=== PATIENT | female | born 1965 | race Caucasian/White ===

== ENCOUNTER 2016-07-28 12:34 | Emergency (ER) | payer OTHER ==
[~2016-07-28] VITALS: Ht 170.2 cm; Wt 156.0 kg
[2016-07-28 12:45] VITALS: BP 134/84
--- NOTE | 2016-07-28 12:57 | ED UPPER/LOWER EXTREMITY COMPL ---
History of Present Illness General Chief Complaint: Lower Extremity Problems Stated Complaint: BLOOD CLOT IN LEFT LEG Source: patient, old records Exam Limitations: no limitations Vital Signs & Intake/Output Vital Signs & Intake/Output Vital Signs Date Time Temp Pulse Resp B/P Pulse O2 O2 Flow FiO2 Ox Delivery Rate 07/28 1245 97.8 67 20 134/84 97 Room Air Allergies Coded Allergies: NO KNOWN ALLERGIES (04/15/12) Triage Note: PT TO ED WITH BLOOD CLOT IN LEFT LEG. PT WAS DIANOSED WITH IT IN [place], SENT HOME WITH XARELTO. PT JUST ARRIVED BACK TO [place]. CAME TO ED. C/O SWELLING AND PAIN TO LLE. Triage Nurses Notes Reviewed? yes Onset: Abrupt Duration: day(s): (4), constant Timing: recent history Severity: moderate Severity Numbers: 5 Pain/Injury Location: Left: Leg. No Modifying Factors: none Associated Symptoms: swelling HPI: 50-year-old female with history of CVA, hypertension with recently diagnosed left lower extremity DVT 4 days ago while she was visiting her father down in [place]. The patient was started on Xarelto on July 25. She states since then she's had persistent aching pain and swelling to her left leg. She just flew back today and came straight to the hospital. The patient does have a history of an ivc filter secondary to blood clots several years ago. She denies any chest pain shortness of breath right leg pain or swelling fever chills. There are no modifying factors or associated symptoms otherwise. She's been able to ambulate without any difficulty. There's been no recent fall or trauma (GUERRERO RODRIGUEZ) Past History Travel History Traveled to [place] past 21 day No Medical History Any Pertinent Medical History? see below for history Neurological: CVA Cardiovascular: hypertension Cancer(s): cervical cancer Surgical History Surgical History: non-contributory Psychosocial History Who do you live with Patient/Self What is your primary language Finnish Tobacco Use: Quit >30 days ago ETOH Use: denies use Illicit Drug Use: denies illicit drug use Family History Hx Contributory? No (GUERRERO RODRIGUEZ) Review of Systems Review of Systems Constitutional: Reports: see HPI. All Other Systems: Reviewed and Negative Comments Review of systems: See HPI, All other systems negative. Constitutional, no chills no fever, no malaise HEENT: No visual changes no sore throat no congestion Cardiovascular: No chest pain , no palpitation Skin, no rashes, no change in skin Respiratory: No dyspnea no cough no sputum GI: No nausea no vomiting, no diarrhea : No dysuria Muscle skeletal: No joint pain, no joint swelling, no back pain, no neck pain, Neurologic: No numbness no headache Psych: No stress Heme/endocrine: No bruising no bleeding Immunology: No lymphadenopathy (GUERRERO RODRIGUEZ) Physical Exam Physical Exam General Appearance: well developed/nourished, alert, awake Comments: Well-developed well-nourished person in no acute distress HEENT: Normal EENT exam; PERRL, EOMI, HEAD is atraumatic. moist mucous membranes. Neck: Supple, normal range of motion Back: Nontender, no CVA tenderness. Full range of motion Cardiovascular: Regular rate and rhythms no murmurs rubs Respiratory: No respiratory distress. Patient speaking in full complete sentences. Breath sounds clear to auscultation bilaterally: NO W/R/R Abdomen: Soft, nontender nondistended, no appreciable organomegaly. Normal bowel sounds. No rebound/guarding, Extremity: Bilateral 3+ pitting edema to bilateral lower extremities, there is no overlying erythema or warmth, tenderness on patient over the left calf muscle , full range of motion of extremities Neuro: Alert oriented x3, motor sensory normal,There were no obvious focal neurologic abnormalities. Skin: No appreciable rash on exposed skin, skin is warm and dry. Psych: Mood and affect is normal, memory and judgment is normal. (GUERRERO RODRIGUEZ) Progress Differential Diagnosis: arterial insufficiency, cellulitis, compartment syndrome , contusion, DVT Plan of Care: Orders Procedure Date/time Status US-UNILATERAL VENOUS DOPPLER 07/28 1311 Active Ultrasound ordered old records reviewed case discussed with Dr. blank I discussed with the patient her ultrasound findings need for close follow-up with her primary care physician and vascular surgery this week. The patient is ambulatory with steady gait here in the department the patient has good follow- up, and feels comfortable with discharge. She has been compliant with taking her XARELTo. She feels comfortable this plan I answered all her questions she will return anytime sooner with any concerns (GUERRERO RODRIGUEZ) Diagnostic Imaging: Viewed by Me: Ultrasound. Discussed w/RAD: Ultrasound. Radiology Impression: NONOCCLUSIVE DVT LLE (GUERRERO RODRIGUEZ) Departure Departure Time of Disposition: 1458 Disposition: HOME OR SELF CARE Condition: Stable Clinical Impression Primary Impression: DVT (deep venous thrombosis) Referrals: TASHA GARCIA,MAGGY Mckeon (PCP/Family) KEILY GARCIA,TRACEY Additional Instructions: CONTINUE TAKING THE XARELTO YOU HAVE WELL THE NORCO FOR BREAKTHROUGH PAIN. FOLLOW UP WITH YOUR PRIMARY CARE PHYSICIAN TOMORROW FOR FOLLOW UP EVALUATION LATER THIS WEEK WEL VASCULAR SURGEON DR MICHAUD. RETURN AT ANYTIME SOONER IF YOU HAVE WORSENING PAIN, SWELLING, DEVELOP CHEST PAIN, SHORTNESS OF BREATH OR ANY CONCERNS Departure Forms: Customer Survey General Discharge Information (GUERRERO RODRIGUEZ) PA/BROACH TROUBLE SHOOTER Co-Sign Statement Statement: ED Attending supervision documentation- [] I saw and evaluated the patient. I have also reviewed all the pertinent lab results and diagnostic results. I agree with the findings and the plan of care as documented in the PA's/BROACH TROUBLE SHOOTER's documentation. x I have reviewed the ED Record and agree with the PA's/BROACH TROUBLE SHOOTER's documentation. [] Additions or exceptions (if any) to the PAs/BROACH TROUBLE SHOOTER's note and plan are summarized below: [] (SHILPA GARCIA,AQUILINO)
--- NOTE | 2016-07-29 09:28 | ULTRASOUND REPORT ---
EXAMINATION: LEFT LOWER EXTREMITY VENOUS DOPPLER ULTRASOUND CLINICAL INFORMATION: Left lower extremity swelling and pain. Recent trip to [place]. Presumptive diagnosis of left lower extremity DVT. Remote history of left lower extremity DVT 6 years ago. COMPARISON: None. TECHNIQUE: Doppler spectral analysis and color flow Doppler imaging was performed of the left lower extremity. Compression and augmentation maneuvers were performed. FINDINGS: Evaluation is difficult given patient's body habitus. There is nonocclusive thrombus seen within the common femoral vein, greater saphenous vein takeoff, and femoral vein with incomplete compressibility and low-level internal echoes seen. With color flow, small amount of residual flow within these vessels is seen. The popliteal vein is patent and normally compressible with normal color flow seen. The midcalf peroneal and posterior tibial veins are not visualized. No popliteal cyst is seen. IMPRESSION: Difficult exam. 1. Nonocclusive acute thrombus is seen within the left common femoral vein, greater saphenous vein takeoff and femoral vein. 2. Popliteal vein remains patent. 3. Calf veins are not seen. This critical result was discussed with Dayday Landaverde 07/28/2016, 2:30 PM and it was ascertained that the content and urgency of this report was understood at the time of direct communication.
== END 2016-07-28 15:05 ==
LOC: ERH 12:34
DX: I82.4Z2 Acute embolism and thrombosis of unspecified deep veins of left distal lower extremity (principal)

== ENCOUNTER 2016-07-30 21:00 | Inpatient (IN) | payer OTHER ==
[~2016-07-30] VITALS: Ht 170.2 cm; Wt 156.0 kg
--- NOTE | 2016-07-30 21:04 | NUR ---
MAURI FROM HOME C/O SEVERE LEFT LEG PAIN/SWELLING. PT REPORTS SHE WAS DX WITH A DVT LAST FRI, SENT HOME ON , SEEN HERE FRIDAY "TO CHECK IN" AND SENT HOME AGAIN. PT STATING SHE WAS WALKING ON FRIDAY AND NOW THE PAIN IS SUCH THAT SHE CANNOT WALK. ALSO C/O FEELING SOB, ON ARRIVAL CONVERSING NORMALLY WITH 02 SAT 100% ON RA.
--- NOTE | 2016-07-30 22:48 | ED UPPER/LOWER EXTREMITY COMPL ---
History of Present Illness General Chief Complaint: Lower Extremity Problems Stated Complaint: LOWER LEG PAIN Source: patient Exam Limitations: no limitations Vital Signs & Intake/Output Vital Signs & Intake/Output Vital Signs Date Time Temp Pulse Resp B/P Pulse O2 O2 Flow FiO2 Ox Delivery Rate 07/30 2307 Room Air 07/30 2101 99.4 81 20 143/68 100 Room Air ED Intake and Output 07/31 0000 07/30 1200 Intake Total 0 Output Total Balance 0 Intake, Oral 0 Patient 344 lb Weight Allergies Coded Allergies: NO KNOWN ALLERGIES (04/15/12) Reconcile Medications Aspirin (Aspirin*) 81 MG TAB.CHEW 1 TAB PO DAILY HEART HEALTH (Reported) Atenolol 50 MG TABLET 1 TAB PO DAILY HTN (Reported) Cephalexin 500 MG CAPSULE 500 MG PO Q6 CELLULITIS Oxycodone HCl 5 MG TABLET 1 TAB PO Q6H PRN PAIN SCALE 4-6 (MODERATE) Rivaroxaban (Xarelto) 15 MG TABLET 1 TAB PO BID DVT (Reported) Triage Note: BIBA FROM HOME C/O SEVERE LEFT LEG PAIN/SWELLING. PT REPORTS SHE WAS DX WITH A DVT LAST FRI, SENT HOME ON XARELTO, SEEN HERE FRIDAY "TO CHECK IN" AND SENT HOME AGAIN. PT STATING SHE WAS WALKING ON FRIDAY AND NOW THE PAIN IS SUCH THAT SHE CANNOT WALK. ALSO C/O FEELING SOB, ON ARRIVAL CONVERSING NORMALLY WITH 02 SAT 100% ON RA. Triage Nurses Notes Reviewed? yes HPI: Patient presents for evaluation of left leg swelling and bruising that began last week while she was in [place]. Patient was evaluated in a hospital in [place], diagnosed with a DVT and placed on XARALTO. She was also given hydrocodone for pain. Patient was evaluated in [facility] on Friday and repeat ultrasound was performed which showed a nonocclusive clot. Of note patient already has an IVC filter. In addition patient states that she has felt a low-grade fever and shortness of breath since yesterday. The patient states that her left lower extreme pain is constant and severe to the point where she is unable to ambulate. She has been compliant with XARALTO. Past History Travel History Traveled to [place] past 21 day No Medical History Any Pertinent Medical History? see below for history Neurological: CVA, CAVERNOUS HEMANGIOMA CRANIAL NEUROPATHY Cardiovascular: hypertension Musculoskeletal: GROVERS DISEASE Cancer(s): cervical cancer Surgical History Surgical History: non-contributory Psychosocial History Who do you live with Patient/Self What is your primary language Canadian Tobacco Use: Quit >30 days ago Family History Hx Contributory? No Review of Systems Review of Systems Constitutional: Reports: no symptoms. EENTM: Reports: no symptoms. Respiratory: Reports: no symptoms. Cardiovascular: Reports: no symptoms. Gastrointestinal/Abdominal: Reports: no symptoms. Genitourinary: Reports: no symptoms. Musculoskeletal: Reports: no symptoms. Skin: Reports: no symptoms. Neurological/Psychological: Reports: no symptoms. Hematologic/Endocrine: Reports: no symptoms. Immunological: Reports: no symptoms. All Other Systems: Reviewed and Negative Physical Exam Physical Exam General Appearance: see below Comments: Gen.: Well-nourished, well-developed, no acute respiratory distress. Head: Normocephalic, atraumatic. Eyes: Normal inspection bilaterally Ears: Normal inspection bilaterally Nose: Normal inspection, nasal cannula in place Throat/mouth : Moist mucosa Neck: Supple, full range of motion, no goiter Heart: Regular rate and rhythm Lungs: Quiet respirations Back: Normal range of motion Extremities: Left lower extremity: Acute edema superimposed on chronic edema with hyperpigmentation. The patient has open wounds of the skin and warmth and erythema of the distal and foot consistent with cellulitis. Neurologic: Cranial nerves grossly intact, speech is clear Skin: warm and dry Psychiatric: Calm, cooperative, no apparent delusions or hallucinations Progress Differential Diagnosis: arterial insufficiency, cellulitis, DVT Plan of Care: Orders Procedure Date/time Status Patient Data 07/31 138 Active XRY-FOOT COMPLETE, LEFT 07/31 117 Active XRY-ANKLE 3 OR MORE VIEWS L 07/31 117 Active BLOOD CULTURE 07/30 2321 Active TROPONIN LEVEL 07/30 2252 Complete CBC WITHOUT DIFFERENTIAL 07/30 225 Complete BASIC METABOLIC PANEL 07/30 225 Complete EKG 07/30 225 Active CTA CHEST-PULMONARY EMBOLISM 07/30 2250 Active Current Medications Sig/James Start time Last Medication Dose Stop Time Status Admin Morphine Sulfate 4 MG ONCE ONE 07/31 129 UNVr (Morphine) 07/31 013 Laboratory Tests 07/30/16 2330: Anion Gap 11, Estimated GFR 47 L, BUN/Creatinine Ratio 11.7, Glucose 99, Calcium 8.1 L, Troponin I 0.06, CBC w Diff MAN DIFF ORDERED, RBC 4.15 L, MCV 91.6, MCH 30.1, RDW 14.8 H, MPV 7.4, Gran % 85.4 H, Lymphocytes % 8.2 L, Monocytes % 5.5, Eosinophils % 0.7, Basophils % 0.2, Absolute Granulocytes 15.5 H, Segmented Neutrophils 84 H, Band Neutrophils 2, Absolute Lymphocytes 1.5, Lymphocytes 10 L, Monocytes 3, Absolute Monocytes 1.0 H, Eosinophils 1, Absolute Eosinophils 0.1, Absolute Basophils 0, Platelet Estimate ADEQUATE, Polychromasia 1+, Poikilocytosis 1+, Ovalocytes 1+, Elliptocytes FEW, PUBS MCHC 32.9 L, Fld Total RBCs Counted 100 Microbiology 07/30 2339 BLOOD: Blood Culture - RECD 07/30 2329 BLOOD: Blood Culture - RECD Comments: 07/31/2016 1:39:06 AM I have updated lavon on her test results. Because of an infiltration of the IV, the cta could not be completed. However the patient is already taking XARALTO. given the cellulitis, pt tba. Departure Departure Disposition: STILL A PATIENT Condition: Stable Clinical Impression Primary Impression: Left leg cellulitis Referrals: TASHA GARCIA,MAGGY Mckeon (PCP/Family) Departure Forms: Customer Survey General Discharge Information Prescriptions: Current Visit Scripts Oxycodone HCl 1 TAB PO Q6H PRN PAIN SCALE 4-6 (MODERATE) #20 Cephalexin 500 MG PO Q6 #18 Admission Note Spoke With: RONNA HOOK MD Documentation of Exam: Documentation of any treatments & extenuating circumstances including Concerns Regarding Discharge (functional status, medication knowledge or non-compliance, living conditions, etc.) that warrant an admission rather than observation: This patient has a left lower extremity cellulitis clinically in the same leg as a current DVT. The patient's swelling and pain has become so severe she is unable to ambulate. Given this I feel she is a poor candidate for outpatient management of her cellulitis given her very high risk of falling with subsequent injury. In addition the difficulty ambulating would make it very challenging for her to comply with outpatient testing and treatment. Instead, the patient should be hospitalized for treatment with IV antibiotics and pain medication. Physical therapy consult should also be obtained for the possibility of short- term rehabilitation. Wound care consultation should also be obtained given the patient's left leg skin ulcerations that are likely the cause for her cellulitis. She'll require at least a 2 day hospital stay to allow the antibiotics to begin clearing the infection. Cultures should be followed up and treated accordingly.
--- NOTE | 2016-07-30 23:16 | NUR ---
PT RESTING COMFORTABLY, IN NAD. EKG DONE. 1ST ATTEMPT AT IV FOR CTA UNSUCCESSFUL
--- NOTE | 2016-07-30 23:30 | NUR ---
IV ESTABLISHED LABS INCLUDING BC X 2 DRAWN AND SENT
[2016-07-30 23:43] LABS: ABSOLUTE BASOPHIL COUNT 0 /CUMM (0.0-0.2); ABSOLUTE EOSINOPHIL COUNT 0.1 /CUMM (0.0-0.7); ABSOLUTE GRANULOCYTE CT 15.5 /CUMM (1.4-6.5); ABSOLUTE LYMPH COUNT 1.5 /CUMM (1.2-3.4); BASOPHIL % 0.2 % (0.0-2.0); EOSINOPHIL % 0.7 % (0-5); GRANULOCYTE % 85.4 % (42.2-75.2); MEAN CORPUSCULAR HGB 30.1 PG (27.0-31.0); MEAN CORPUSCULAR HGB CONC 32.9 G/DL (33.0-37.0); MEAN CORPUSCULAR VOLUME 91.6 FL (81.0-99.0); MEAN PLATELET VOLUME 7.4 FL (7.4-10.4); PLATELET COUNT 238 /CUMM (130-400); RBC DISTRIBUTION WIDTH 14.8 % (11.5-14.5); RED BLOOD CELL CT 4.15 /CUMM (4.20-5.40); WHITE BLOOD CELL COUNT 18.2 /CUMM (4.8-10.8)
--- NOTE | 2016-07-31 | NUR ---
VIBRAMYCIN 100 MG IV GIVEN
--- NOTE | 2016-07-31 01:00 | NUR ---
TO CAT SCAN IV NOT WORKING, UNABLE TO COMPLETE CTA DR PEREZ AWARE
--- NOTE | 2016-07-31 01:53 | History & Physical ---
TRISHA GARCIA,SUZANNE 07/31/16 0152: General Information and HPI MD Statement: I have seen and personally examined ADÁN AQUINO and documented this H&P. The patient is a 50 year old F who presented with a patient stated chief complaint of [Left leg pain and swelling]. 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 She was recently in [place], went to urgent care after noticing swelling of left leg, diagnosed with DVT again, started on Xarelto. She returned back to [place] on friday before which she started noticing wheeping wounds on the lower legs. Last friday she came to ER for increasing pain in the leg, received pain medications & sent home. Today she came with increased swelling and pain despite treatment. Her pain is burning in nature, 8/10 intensity. She also reports fever, chills, shortness of breath, chest tightness. In addition recently she lost her job and being sedentary for most of the day. She denies any abdominal pain, nausea, vomiting, diarrhea, change in urinary habits. Allergies/Medications Allergies: Coded Allergies: NO KNOWN ALLERGIES (04/15/12) Home Med list Aspirin (Aspirin*) 81 MG TAB.CHEW 1 TAB PO DAILY HEART HEALTH (Reported) Atenolol 50 MG TABLET 1 TAB PO DAILY HTN (Reported) Rivaroxaban (Xarelto) 15 MG TABLET 1 TAB PO BID DVT (Reported) Compliance With Home Meds: GOOD Past History Travel History Traveled to [place] past 21 day No Medical History Neurological: CVA, CAVERNOUS HEMANGIOMA CRANIAL NEUROPATHY Cardiovascular: hypertension Respiratory: NONE Gastrointestinal: NONE Hepatic: NONE Renal: NONE Musculoskeletal: GROVERS DISEASE Blood Disorders: DVT Cancer(s): cervical cancer Surgical History Surgical History: craniotomy for hemangioma (cavernous), IVC filter placement Past Family/Social History Family History Relations & Conditions if any FATHER Coagulation disorder MOTHER FH: coronary arteriosclerosis grand mother FH: stroke Psychosocial History Where do you live? Home Who Do You Live With? self Services at Home: None Smoking Status: Former Smoker ETOH Use: denies use Illicit Drug Use: denies illicit drug use Functional Ability ADLs Independent: dressing, eating, toileting, bathing. Ambulation: independent IADLs Independent: shopping, housework, finances, food prep, telephone, transportation , medication admin. Employment History Employment Unemployed Review of Systems Review of Systems Constitutional: Reports: see HPI, fever, malaise, weakness. EENTM: Reports: no symptoms, see HPI. Respiratory: Reports: short of breath. Exam & Diagnostic Data Last 24 Hrs of Vital Signs/I&O Vital Signs Date Time Temp Pulse Resp B/P Pulse O2 O2 Flow FiO2 Ox Delivery Rate 07/31 0157 99.8 74 18 118/60 100 Room Air 07/30 2307 Room Air 07/30 210 99.4 81 20 143/68 100 Room Air Intake & Output 07/31 0800 07/31 0000 07/30 1600 Intake Total 0 Output Total Balance 0 Intake, Oral 0 Patient 156.036 kg Weight Physical Exam General Appearance Alert, Oriented X3, Cooperative, No Acute Distress Skin No Rashes, significant erythema with wheeping wounds on the legs L>>>R HEENT Atraumatic, PERRLA, EOMI Neck Supple Cardiovascular Regular Rate, Normal S1, Normal S2, No Murmurs Lungs Clear to Auscultation, Normal Air Movement Abdomen Normal Bowel Sounds, Soft, No Tenderness Neurological Strength at 5/5 X4 Ext, Normal Tone Extremities No Clubbing, No Cyanosis, significant edema with wheeping skin lesions Vascular Pulses Symmetrical Body Front and Back (Adult) 1) Significant erythema, warmth along with wheeping wounds 2) Changes in skin colour - appear chronic, mildly warm. 3) 7th nerve palsy Assessment/Plan Assessment: Patient is a 50 YO obese F with PMH significant for CVA, Carvernous hemangioma ( s/p craniotomy) with residual cranial neuropathies of 3,6,7 nerves, facial droop , DVT, IVF filter, HTN, [place] disease, Cervical cancer, Cranial neuropathies came to ER with increased pain, swelling of the left leg for the past 2 days. She was recently found to have DVT on left leg & started on xarelto. Plan Admitted to general medicine floor Left lower extremity Cellulitis with serosaguinous fluid drainage * Wheeping wounds evident on the left side. * Started on IV cefazolin 1gm Q8 pending cultures. * Received a single dose of doxycycline (remote history of MRSA), consider vanco if not responding * leg elevation * Pain management * wound care consult * complete lower extremity ultrasound to rule out abscess History of DVT * recently started on xarelto * would continue that for now History of Hypertension * Continue her home dose of amlodipine DVT prophylaxis * on Xarelto Code Status * full Code As Ranked By This Provider Problem List: 1. Morbid obesity 2. DVT (deep venous thrombosis) 3. Left leg cellulitis Core Measures/Miscellaneous Acute Coronary Syndrome ACS Diagnosis: No Cerebrovascular Accident CVA/TIA Diagnosis: No Congestive Heart Failure CHF Diagnosis: No Venous Thromboembolism VTE Risk Factors: Cancer/chemo/oth therapy VTE Prophylaxis Ordered Inpt: Pharm- Xarelto No Mech VTE prophylaxis d/t: No contraindications No VTE Pharm Prophylaxis d/t: No contraindications VTE Diagnosis: No VTE Type: NONE VTE Confirmed by (Test): NONE Severe Sepsis Severe Sepsis Present: No Septic Shock Septic Shock Present: No Miscellaneous Documentation Attending Case Discussed With: RONNA HOOK MD Primary Care Physician: MAGGY CORDOVA MD Patient sees these Specialists unknown Level of Patient Care: General Medicine KYLE ASCENCIO MD 07/31/16 0257: Resident Review Statement Resident Statement: examined this patient, discussed with research intern, agreed with research intern, reviewed EMR data (avail), reviewed images, amended to note Other Findings: This is 50 year old unfortunate morbidly obese female with past medical history of hemorrhagic stroke secondary to cavernous hemangioma s/P surgical removal resulting in permanent record sixth and seventh cranial neuropathies with residual right-sided facial droop, paresthesia, hypertension, [place]'s disease, cervical cancer diagnosed 5 years ago s/p chemotherapy and radiation and surgical removal, history of DVT 6 years BACK S/P 2 years warfarin treatment who was off anticoagulation for past 4 years recently traveled to [place], where she was diagnosed with left lower extremity DVT on evaluation of left lower extremity swelling and started on Xarelto, subsequently returned to home last Friday and evaluated in ER for the same "lower extremity swelling and pain found to have nonocclusive thrombus within left common femoral vein, greater saphenous vein and femoral vein and discharged from ER with pain medication now returns from home with 3 days history of persistent left lower extremity swelling associated with pain, erythema and oozing. Patient claims her left lower extremity started swelling a week prior to admission when she was diagnosed with DVT. For past 3 days she has noted oozing from left lower extremity with associated severe 8/10 burning pain. She had low-grade fever of 100 a day prior to admission. Vitals were T 99.4, HR 81, RR 20, BP 143/68, O2 sat 100% on room air On physical exam patient is alert oriented 3 in no distress, pupils equal reactive to light, noted right facial droop, neck supple, heart S1-S2 normal without murmur, lungs clear on auscultation, abdomen soft nontender nondistended with preserved fall sounds, noted bilateral lower extremity swelling left more than right, left lower extremity distal erythema with oozing open skin ulcer warm and tender on touch, paresthesia of left upper extremity. Labs revealed leukocytosis of 18,200 with left shift, H&H 12.4/38, K3.7, BUN 14, creatinine 1.2 (baseline creatinine 1.1 in 09/19), troponin 0.06. EKG revealed, sinus rhythm at rate of 75, septal v1-4 T-wave inversion new from previous EKG Left lower extremity Doppler done on 07/28/2016 revealed nonocclusive acute thrombus within the left common femoral vein, greater saphenous vein takeoff and femoral vein Unable to do CTA chests as IV infiltrated Partial CT chest noted. Lungs with asymmetric elevation of the right hemidiaphragm on the space operations film Left ankle and foot x-ray revealed soft tissue swelling suggestive of cellulitis but no bony involvement or air in soft tissue noted Assessment: This is 50-year-old female with past medical history of CVA secondary to cavernous hemangioma S/P surgical removal resulting in permanent cranial neuropathies, hypertension, [place] disease, cervical cancer in remission , recently diagnosed DVT on Xarelto presented with 3 days history of persistent left lower extremity swelling associated with erythema and severe pain with skin breakdown and oozing likely suggestive of cellulitis 1. Left lower extremity Cellulitis Admit to general medicine floor Follow-up blood cultures Patient received 1 dose of IV doxycycline in ER Start IV cefazolin 1 g every 8 hours Leg elevation Soft tissue left lower extremity ultrasound to rule out underlying abscess Pain control Wound care consult 2. Hypertension Continue home dose of atenolol 50 mg daily 3. Left lower extremity DVT Continue home dose Xarelto to 15 mg twice a day 4. Abnormal EKG Noted nonspecific T inversion in V1-4 (new) - 1st set of trop 0.06 - repeat 2nd set trop in am with EKG - Patient denies any active cp 5. DVT prophylaxis On Xarelto 6. 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 Patient flew back on July 28, and immediately came to [facility] ER with a concern of not being treated enough for DVT and persistent pain and swelling left lower extremity. DVT Doppler was obtained at that time and was sent home with reassurance on Xeralto. Patient came back again today with persistent swelling, pain, redness and unable to walk. She also complained of low-grade fever at home yesterday, no obvious trauma. She had transient episode of chest pain yesterday lasted a few minutes associated with shortness of breath subsequently resolved without any treatment. Patient currently denies any chest pain, cough, palpitations, dizziness, diaphoresis, shortness of breath. Vitals: T max 99.8, pulse 81, RR 20, blood pressure 143/68 at presentation, saturating 100% on room air. On exam: A O 3, no apparent distress, morbidly obese, neck supple, no lymphadenopathy, mucosa moist, right-sided facial palsy, extraocular muscles weakness, left-sided pupil reactive normally. Hazy cornea on the right side. (Patient has chronic diplopia and blurry vision), strength in bilateral upper extremity and lower extremity normal. Left lower extremity: Swollen more than right lower extremity, superficial skin breakdowns, serous discharge, warm to touch, no crepitus, no obvious pus, no abscess, adjacent joint mobility intact, peripheral pulses and perfusion normal. CVS: S1-S2, RRR. RS: Clear air entry bilaterally present abdomen: Obese, 90, M.D., bowel sounds present diffuse skin papular rash. Stasis changes and right lower extremity. Labs: WBC 18.2, creatinine 1.2 otherwise unremarkable. A and P #1 left lower extremity cellulitis: With Suspected stasis. Rule out abscess with soft tissue ultrasound, blood cultures 2 , continue cefazolin , wound care consult. Patient has remote Hx MRSA?, change to Vanc if no responce #2 patient had transient episode of chest pain yesterday currently denies any chest pain. CTA was attempted in ER, contrast extravasated so plain CT scan was obtained. ?VQ scan versus CTA in a.m., continued on Xeralto, continue aspirin 81 mg by mouth daily, repeat troponin in 6 hours, repeat EKG in 6 hours. ? cause of DVT : long travel, Hx of Cx Ca : should follow outpatient with Oncology. #3 HTN: Continue her atenolol. #4 adequate pain control.
--- NOTE | 2016-07-31 01:56 | NUR ---
IV RESTARTED #22 RH MORPHIONE 4 MG IV FOR LEL PAIN DR SAMPSON IN TO EVALUATE
--- NOTE | 2016-07-31 01:58 | CT SCAN REPORT ---
Canceled CTA of the chest 15 mLs of contrast infiltrated in the setting of poor IV access. The patient was instructed to alternate cold and warm compresses every 15 minutes for 4 hours over the infiltrated area. No IV access could be obtained. The visualized lungs on the noncontrast CT runs appear clear. There is asymmetric elevation of the right hemidiaphragm on the cooperative education coordinator film.
[2016-07-31] MEDS ORDERED: XARELTO15 M1 PO (02:36)
[2016-07-31] MEDS ORDERED: ASPIRIN81 M4 PO (02:37)
[2016-07-31] MEDS ORDERED: ATENOLOL50 M1 PO (02:37)
--- NOTE | 2016-07-31 02:37 | RADIOLOGY REPORT ---
EXAMINATION: 2 views of the left ankle CLINICAL INFORMATION: Ankle and foot cellulitis. COMPARISON: Left foot radiographs dated 12/17/2010. TECHNIQUE: AP, lateral, and mortise views of the left ankle. FINDINGS: Significant soft tissue swelling involving the left ankle and along the dorsal aspect of the foot. No bony erosion nor periosteal reaction is identified to suggest osteomyelitis. A few chronic well-corticated bone fragments below the tip of the fibula are stable, possibly the sequela of old trauma. No acute fractures. Os trigonum. IMPRESSION: Significant soft tissue swelling involving the left ankle and along the dorsal aspect of the foot in keeping with the reported clinical history of cellulitis. There are no acute osseous abnormalities involving the left ankle. No radiographic evidence of osteomyelitis.
--- NOTE | 2016-07-31 02:40 | RADIOLOGY REPORT ---
EXAMINATION: 2 views of the left foot CLINICAL INFORMATION: Left ankle and foot cellulitis. COMPARISON: Left foot radiographs 12/17/2010. FINDINGS: Diffuse soft tissue swelling involving the left foot, greatest dorsally. No acute fractures. There is medial angulation across the second metatarsophalangeal joint. The bony articulations are maintained. Os trigonum. No bony erosions or periosteal reaction. No radiopaque foreign bodies. IMPRESSION: Diffuse soft tissue swelling involving the left foot, greatest dorsally in keeping with the clinical history of cellulitis. No radiographic evidence of osteomyelitis.There is medial angulation across the second metatarsophalangeal joint that may be physiologic or that may reflect subluxation which can be correlated for tenderness overlying this area.
--- NOTE | 2016-07-31 05:01 | Admission Certification ---
Admission Certification Certification Statement - As attending physician, I certify that at the time of - admission, based on clinical presentation, severity of - symptoms, need for further diagnostic testing and - therapeutic interventions, and risk of adverse outcomes - without in-hospital treatment, in my clinical assessment, - this patient requires an acute hospital stay for a minimum - of two nights or longer. I have also considered psychsocial - factors such as support system, advanced age, financial - issues, cognitive issues, and failed out-patient treatments, - past re-admission history, safety of patient, and lack of - compliance as applicable. Specific rationale supporting this admission is: left LE cellulitis
--- NOTE | 2016-07-31 06:00 | NUR ---
BLOOD DRAWN AND SENT TO LAB SST LAV BLUE EKG DONE
[2016-07-31 06:18] LABS: ABSOLUTE BASOPHIL COUNT 0 /CUMM (0.0-0.2); ABSOLUTE EOSINOPHIL COUNT 0.3 /CUMM (0.0-0.7); ABSOLUTE GRANULOCYTE CT 12.5 /CUMM (1.4-6.5); ABSOLUTE LYMPH COUNT 1.4 /CUMM (1.2-3.4); ABSOLUTE MONOCYTE COUNT 0.8 /CUMM (0.10-0.60); BASOPHIL % 0.1 % (0.0-2.0); EOSINOPHIL % 1.8 % (0-5); GRANULOCYTE % 83.3 % (42.2-75.2); MEAN CORPUSCULAR HGB 30.4 PG (27.0-31.0); MEAN CORPUSCULAR HGB CONC 33.3 G/DL (33.0-37.0); MEAN CORPUSCULAR VOLUME 91.4 FL (81.0-99.0); MEAN PLATELET VOLUME 7.6 FL (7.4-10.4); PLATELET COUNT 216 /CUMM (130-400); RED BLOOD CELL CT 3.84 /CUMM (4.20-5.40); WHITE BLOOD CELL COUNT 14.9 /CUMM (4.8-10.8)
--- NOTE | 2016-07-31 07:35 | PN- Housestaff ---
HELADIO BAKER 07/31/16 0734: Subjective Follow-up For: 1.Left lower extremity cellulitis superimposed on suspected stasis/Gurwinder's skin disease(rule out underlying abscess) 2. Left lower extremity DVT Subjective: Patient is seen and examined today seem slightly better in the morning, left leg swelling with open wounds covered with clean dry dressings we'll consult Dr. Arenas has been obtained and follow the recommendations continue leg elevation and cefazolin for possible cellulitis. Left lower extremity ultrasound is pending to rule out any underlying abscess. Review of Systems Constitutional: Denies: chills, diaphoresis, fever. EENTM: Denies: blurred vision, double vision, visual changes, eye pain. Cardiovascular: Denies: chest pain, edema, orthopena. Respiratory: Denies: cough, hemoptysis, orthopnea. Gastrointestinal: Denies: abdominal pain, bloating, constipation. Genitourinary: Denies: discharge, dysuria, frequency. Musculoskeletal: Denies: back pain, gout. Skin: Reports: change in skin color, lesions. Neurological/Psychological: Denies: anxiety, ataxia, cognitive dysfunction, confusion. Objective Last 24 Hrs of Vital Signs/I&O Vital Signs Date Time Temp Pulse Resp B/P Pulse O2 O2 Flow FiO2 Ox Delivery Rate 07/31 0607 98.4 70 20 109/62 97 07/31 0157 99.8 74 18 118/60 100 Room Air 07/30 2307 Room Air 07/30 2102 99.4 81 20 143/68 100 Room Air Intake & Output 07/31 1600 07/31 0800 07/31 0000 Intake Total 15 0 Output Total 300 Balance -285 0 Intake, IV 15 Intake, Oral 0 Output, Urine 300 Patient 344 lb 344 lb Weight Physical Exam General Appearance: Alert, Oriented X3, No Acute Distress Skin: left lower extremity weeping wounds covered with clean dry dressing HEENT: Atraumatic, PERRLA Neck: Supple, No JVD Lymphatic: Axillary nl Cardiovascular: Regular Rate, Normal S1, Normal S2 Lungs: Clear to Auscultation, Normal Air Movement Abdomen: Normal Bowel Sounds, Soft, No Tenderness Neurological: Normal Speech, Strength at 5/5 X4 Ext, Normal Tone Extremities: left lower extremity open wounds weeping code with clean dry dressings Assessment/Plan Assessment: This is 50-year-old woman with past medical history of CVA secondary to cavernous hemangioma S/P surgical removal resulting in permanent cranial neuropathies, hypertension, [place] disease, cervical cancer in remission, recently diagnosed DVT on Xarelto presented with 3 days history of persistent left lower extremity swelling associated with erythema and severe pain with skin breakdown and oozing likely suggestive of cellulitis Labs revealed leukocytosis of 18,200 with left shift, H&H 12.4/38, K3.7, BUN 14, creatinine 1.2 (baseline creatinine 1.1 in 09/19), troponin 0.06. EKG revealed, sinus rhythm at rate of 75, septal v1-4 T-wave inversion new from previous EKG Left lower extremity Doppler done on 07/28/2016 revealed nonocclusive acute thrombus within the left common femoral vein, greater saphenous vein takeoff and femoral vein Unable to do CTA chests as IV infiltrated Partial CT chest noted. Lungs with asymmetric elevation of the right hemidiaphragm on the graphic production artist film Left ankle and foot x-ray revealed soft tissue swelling suggestive of cellulitis but no bony involvement or air in soft tissue noted Assessment and plan 1.Left lower extremity cellulitis superimposed on suspected stasis/[place]'s skin disease(rule out underlying abscess): * Continue to monitor patient on [facility] floor * Continue with IV cefazolin for possible cellulitis. * Blood cultures and wound cultures are pending. * Follow-up lower extremity ultrasound to rule out any underlying abscess/ necrotizing fasciitis * We'll consult Dr. Arenas has been obtained will follow the recommendations. * Continue with leg elevation. * Continue monitor vitals every 4 hours * Pain control with IV morphine and oxycodone. 2. Left lower extremity DVT(recent history of long distance travel and cervical cancer in the past) * Transient episode of acute shortness of breath on admission however CTA ruled out any underlying PE. * Continue with Xarelto 15 mg twice a day. * Follow-up outpatient oncology. 3. History of hypertension * Continue home dose of atenolol. 4. Mild to moderate pain pathway with IV morphine and oxycodone. 5. DVT prophylaxis xeralto . 7. Patient is full code Problem List: 1. Left leg cellulitis 2. DVT (deep venous thrombosis) Pain Ratin Pain Location: Left lower extremity pain Pain Goal: Remain pain free Pain Plan: When necessary morphine and oxycodone Tomorrow's Labs & Rationales: CBCs and BEP Deranged kidney functions Leukocytosis AGNES GARCIA,STEPHANIA 07/31/16 1119: Attending MD Review Statement Attending Statement Attending MD Statement: examined this patient, discuss w/resident/PA/DIABETES SOLUTIONS SPECIALIST, agreed w/resident/PA/DIABETES SOLUTIONS SPECIALIST, reviewed EMR data (avail), discussed with nursing, reviewed images, amended to note Attending Assessment/Plan: Patient seen and examined, still complains of pain in the left lower extremity. The left lower extremity still is swollen and has some open areas with oozing. Vital Signs Date Time Temp Pulse Resp B/P Pulse O2 O2 Flow FiO2 Ox Delivery Rate 07/31 0934 98.9 72 20 140/70 97 Room Air 07/31 0607 98.4 70 20 109/62 97 07/31 0157 99.8 74 18 118/60 100 Room Air 07/30 2307 Room Air 07/30 2102 99.4 81 20 143/68 100 Room Air on exam; aox3, nad. cv; s1,s2, rrr. resp; clear abd; soft, nt, bs+ ext 2+ edema lle, 1+ edema rle. Chronic skin changes. skin; there is erythema and warmth to the left lower extremity. There is open areas with oozing. Laboratory Tests 07/31 07/30 0553 2330 Chemistry Sodium (137 - 145 mmol/L) 137 136 L Potassium (3.5 - 5.1 mmol/L) 3.9 3.7 Chloride (98 - 107 mmol/L) 98 97 L Carbon Dioxide (22 - 30 mmol/L) 26 28 Anion Gap (5 - 16) 13 11 BUN (7 - 17 mg/dL) 14 14 Creatinine (0.5 - 1.0 mg/dL) 1.2 H 1.2 H Estimated GFR (>60 ml/min) 47 L 47 L BUN/Creatinine Ratio (7 - 25 %) 11.7 11.7 Glucose (65 - 99 mg/dL) 99 Calcium (8.4 - 10.2 mg/dL) 8.1 L Troponin I (< 0.11 ng/ml) 0.05 0.06 Hematology CBC w Diff MAN DIFF ORDERED MAN DIFF ORDERED WBC (4.8 - 10.8 /CUMM) 14.9 H 18.2 H RBC (4.20 - 5.40 /CUMM) 3.84 L 4.15 L Hgb (12.0 - 16.0 G/DL) 11.7 L 12.5 Hct (37 - 47 %) 35.0 L 38.0 MCV (81.0 - 99.0 FL) 91.4 91.6 MCH (27.0 - 31.0 PG) 30.4 30.1 RDW (11.5 - 14.5 %) 15.0 H 14.8 H Plt Count (130 - 400 /CUMM) 216 238 MPV (7.4 - 10.4 FL) 7.6 7.4 Gran % (42.2 - 75.2 %) 83.3 H 85.4 H Lymphocytes % (20.5 - 51.1 %) 9.5 L 8.2 L Monocytes % (1.7 - 9.3 %) 5.3 5.5 Eosinophils % (0 - 5 %) 1.8 0.7 Basophils % (0.0 - 2.0 %) 0.1 0.2 Absolute Granulocytes (1.4 - 6.5 /CUMM) 12.5 H 15.5 H Segmented Neutrophils (42.2 - 75.2 %) 79 H 84 H Band Neutrophils (0.0 - 5.0 %) 1 2 Absolute Lymphocytes (1.2 - 3.4 /CUMM) 1.4 1.5 Lymphocytes (20.5 - 51.1 %) 12 L 10 L Monocytes (1.7 - 9.3 %) 3 3 Absolute Monocytes (0.10 - 0.60 /CUMM) 0.8 H 1.0 H Eosinophils (0 - 5.0 %) 4 1 Absolute Eosinophils (0.0 - 0.7 /CUMM) 0.3 0.1 Basophils (0.0 - 2.0 %) 1 Absolute Basophils (0.0 - 0.2 /CUMM) 0 0 Platelet Estimate (ADEQUATE) ADEQUATE ADEQUATE Polychromasia 1+ 1+ Poikilocytosis 2+ 1+ Ovalocytes 1+ 1+ Stomatocytes 1+ Elliptocytes FEW PUBS MCHC (33.0 - 37.0 G/DL) 33.3 32.9 L Other Body Source Fld Total RBCs Counted (%) 100 100 A/P: 50 y/o F with pmh sig for CVA, Carvernous hemangioma (s/p craniotomy) with residual cranial neuropathies of 3,6,7 nerves, facial droop, DVT, IVF filter, HTN, [place] disease, Cervical cancer, recent diagnosis of left lower extremity DVT started on Xarelto now admitted with cellulitis. Patient has been started on IV cefazolin. We'll continue that and follow-up on cultures. Wound care consult is requested. Continue Xarelto. Morphine is ordered for pain management. Continue other home medications. Once pain is slightly better controlled, will try to ambulate the patient.
--- NOTE | 2016-07-31 07:40 | NUR ---
ASSUMED CARE OF PT WHO IS A&OX3. PT APPEARS IN NAD. PT GIVEN BREAKFAST TRAY AND GIVEN WARM WIPES PER REQUEST. LEFT LEG IS ELEVATED AND COVERED WITH CHOCK. WILL COMPLETE WET TO DRY DRSG ORDERED. LEFT LOWER EXTREMITY APPEARS REDDENED AND WEEPING. PT HAS SMALL FIRM RED LESIONS ON CHEST AND BACK WHICH SHE STATES ARE GROVERS DISEASE AND CURRENTLY NOT BEING TREATED. PT ALSO HAS RESIDUAL LEFT FACIAL DROOP FROM PAST CVA. PT STATES IVC FILTER WAS PLACED PROPHALACTICALLY AFTER BRAIN SURGERY AT [facility] 12 YEARS AGO TO EVACUATE CANAVEROUS HEMANGIOMA. WILL CTM
--- NOTE | 2016-07-31 08:39 | NUR ---
DRY DRESSING APPLIED WITH NON ADHERENT DRSG AND KERLIX. PT TOLERATED WELL
--- NOTE | 2016-07-31 10:00 | NUR ---
MORNING MEDS GIVEN DOCUMENTED IN EMAR
--- NOTE | 2016-07-31 10:33 | ULTRASOUND REPORT ---
EXAMINATION: US SUPERFICIAL IMAGING, EXTREMITY CLINICAL INFORMATION: Left lower extremity swelling, redness, pain and fever. Presumptive diagnosis of left lower extremity cellulitis. Evaluate for abscess. Patient found to have nonocclusive acute thrombus within the left common femoral vein, greater saphenous vein takeoff and femoral vein on 07/28/2016. COMPARISON: Plain films of the left ankle dated 07/31/2016. Venous Doppler ultrasound of the left lower extremity dated 07/28/2016. TECHNIQUE: Focused ultrasound of the area of patient's redness and tenderness in the left anterior garcia was performed in region of the open sore with a sterile transducer probe cover. FINDINGS: Diffuse edema is seen in the subcutaneous tissues of the anterior left mid garcia with mild thickening and edema of the overlying skin. No focal fluid collection or phlegmonous change is seen. With color Doppler imaging, no significant hyperemia is seen. Superficial veins are patent with normal color flow demonstrated. IMPRESSION: 1. Diffuse cutaneous and subcutaneous soft tissue edema in region of the patient's tenderness and redness in the left anterior garcia. 2. No focal abscess collection/phlegmon seen.
--- NOTE | 2016-07-31 13:01 | NUR ---
BED ASSIGNMENT 208-01
--- NOTE | 2016-07-31 13:03 | NUR ---
PT. DOES NOT HAVE A BED YET, WILL ASSIGN A BED WHEN ONE IS AVAIALBLE PER NURSING FOREIGN LANGUAGE TEACHER
--- NOTE | 2016-07-31 13:25 | NUR ---
NONSTICK DSG AND KERLEX REAPPLIED DUE TO SIGNIFICANT WEEPING. PT NOTED TO HAVE ACCIDENTALLY PULLED OUT IV IN RH HAND, NO INJURY NOTED. PRESSURE APPLIED UPON FULL REMOVAL BY THIS RN. NEW IV ESTABLISHED TO L HAND AND COBAN APPLIED TO ENSURE SAFETY THAT IT WILL NOT BE DISLODGED. PT INFORMED OF BED ASSIGNMENT
[2016-07-31 13:37] VITALS: BP 128/61
--- NOTE | 2016-07-31 14:27 | NUR ---
DR CEVALLOS AT BEDSIDE FOR WOUND EVAL AND LEGS ELEVATED IN BED 45 DEGREES
--- NOTE | 2016-07-31 14:37 | NUR ---
bed assignment 211-01
--- NOTE | 2016-07-31 15:21 | NUR ---
PT AMBULATORY WITH WALKER TO BATHROOM
--- NOTE | 2016-07-31 15:30 | Cons- Wound Care ---
General Information and HPI Consulting Request Date of Consult: 07/31/16 Requested By: STEPHANIA ALARCON MD Reason for Consult: Left lower extremity ulcers present on admission History of Present Illness: Patient is a 50-year-old woman with recent history of DVT and chronic dermatitis presented with an ulceration of the left leg. She is felt to have soft tissue skin infection started on Kefzol she denies knowledge of peripheral vascular disease Allergies/Medications Allergies: Coded Allergies: NO KNOWN ALLERGIES (04/15/12) Home Med List: Aspirin (Aspirin*) 81 MG TAB.CHEW 1 TAB PO DAILY HEART HEALTH (Reported) Atenolol 50 MG TABLET 1 TAB PO DAILY HTN (Reported) Rivaroxaban (Xarelto) 15 MG TABLET 1 TAB PO BID DVT (Reported) Past History Travel History Traveled to [place] past 21 day No Medical History Blood Transfusion Hx: No Neurological: CVA, CAVERNOUS HEMANGIOMA CRANIAL NEUROPATHY EENT: tonsil infections Cardiovascular: hypertension, DVT Respiratory: NONE Gastrointestinal: NONE Hepatic: NONE Renal: NONE Musculoskeletal: GROVERS DISEASE Blood Disorders: DVT Cancer(s): cervical cancer Surgical History Surgical History: craniotomy for hemangioma (cavernous) IVC filter placement Family History Relations & Conditions If Any: FATHER Coagulation disorder MOTHER FH: coronary arteriosclerosis grand mother FH: stroke Psychosocial History Where Do You Live? Home Who Do You Live With? self Services at Home: None Smoking Status: Former Smoker ETOH Use: denies use Illicit Drug Use: denies illicit drug use Functional Ability ADLs Independent: dressing, eating, toileting, bathing. Ambulation: independent IADLs Independent: shopping, housework, finances, food prep, telephone, transportation , medication admin. Employment History Employment: Unemployed Exam & Diagnostic Data Vital Signs and I&O Vital Signs Result Date Time Pulse Ox 97 07/31 1337 B/P 128/61 07/31 1337 O2 Delivery Room Air 07/31 1337 Temp 97.9 07/31 1337 Pulse 66 07/31 1337 Resp 18 07/31 1337 Intake & Output 07/31 0000 07/30 1600 07/30 0800 Intake Total 0 Output Total Balance 0 Intake, Oral 0 Patient 344 lb Weight Exam of both her legs shows there to be extensive hyperpigmentation over both pretibial areas the left leg has pitting edema and faint erythema there to ulcers present 1 approximately 1.5 x 1.5 cm with red and yellow fill the other approximately 3 x 1 cm with prominently yellow fill the dorsalis pedis pulse is able to be palpated the posterior tibial is absent. There is evidence of leukocytosis Assessment/Plan Impression/Plan: 30-year-old woman with chronic dermatitis recent DVT presents with increasing edema left leg swelling and suspected soft tissue skin infection. There are 2 left lower extremity ulcers which are likely venous stasis in origin. Recommend Wound cleansing and topical Xeroform and maximal leg elevation. If she fails to respond formal dermatologic evaluation for Gurwinder's disease would be appropriate Consult Acknowledgment - Thank you for your consult request.
[2016-07-31 17:31] VITALS: BP 132/82
--- NOTE | 2016-07-31 18:46 | NUR ---
PT ARRIVED IN ROOM #211 FROM ER TODAY AT ABOUT 1600. PT IS A/O X3. VSS. 132/82,66,97.8,18,96% ON RA. DRESSING TO LLE C/D/I. PT C/O PAIN ONLY UPON MOVING THE EXTREMITY. PT REFUSSED ANY PO MEDS FOR PAIN CURRENT. PT ORRIENTED TO ROOM. PT C/O DBL VISION HOWEVER IT IS BASESLINE PER PAST CVA ALONG WITH A LEFT HAND TREMMOR AND L SIDED FACIAL DROOP. PT IS ON CONTACT FOR HX OF MRSA. RECIEVED NEW ADMISSION PACKET. SAFETY MAINTAINED. CALL CHRIS STRAUSS.
[2016-08-01 00:53] VITALS: BP 120/62
[2016-08-01 07:21] VITALS: BP 125/80
--- NOTE | 2016-08-01 07:27 | PN- Housestaff ---
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 Left lower extremity DVT Subjective: Patient is seen and examined today, remains almost the same reports pain around the wound in the left leg, controlled with morphine, she has been seen by Dr. Arenas yesterday recommended to keep the leg elevated with Xeroform dressings. Blood cultures are negative, we will continue with IV cefazolin for now. Vascular surgery consult with Dr. Avila has been obtained will follow the recommendations. Review of Systems Constitutional: Denies: chills, diaphoresis, fever, malaise. EENTM: Denies: blurred vision, double vision, eye pain. Cardiovascular: Denies: chest pain, edema, orthopena. Respiratory: Denies: cough, hemoptysis, orthopnea. Gastrointestinal: Denies: abdominal pain, bloating, constipation. Skin: Reports: change in skin color, change in hair/nails. Objective Last 24 Hrs of Vital Signs/I&O Vital Signs Date Time Temp Pulse Resp B/P Pulse O2 O2 Flow FiO2 Ox Delivery Rate 08/01 0721 98.2 80 20 125/80 96 08/01 0053 99.4 76 20 120/62 93 07/31 1731 97.8 66 20 132/82 94 Room Air 07/31 1337 97.9 66 18 128/61 97 Room Air 07/31 1326 97.9 66 18 128/61 97 Room Air 07/31 0934 98.9 72 20 140/70 97 Room Air Intake & Output 08/01 1600 08/01 0800 08/01 0000 Intake Total 240 240 Output Total Balance 240 240 Intake, Oral 240 240 Number 0 Bowel Movements Physical Exam General Appearance: Alert, Oriented X3 Skin: No Rashes, No Breakdown HEENT: Atraumatic, PERRLA Cardiovascular: Regular Rate, Normal S1, Normal S2 Lungs: Clear to Auscultation, Normal Air Movement Abdomen: Normal Bowel Sounds, Soft, No Tenderness Neurological: Normal Speech, Strength at 5/5 X4 Ext, Normal Tone Extremities: bilateral lower extremity skin changes, open wounds with serosanguineous discharge covered with dry dressings discharged on the left leg covered with dry dressing and Vascular: Normal Pulses Current Medications: Current Medications Sig/James Start time Last Medication Dose Route Stop Time Status Admin Acetaminophen 650 MG Q6P PRN 07/31 0300 AC PO Aspirin 81 MG DAILY 07/31 1000 AC 07/31 PO 0941 Aspirin 0 .STK-MED ONE 07/31 0928 DC PO Atenolol 50 MG DAILY 07/31 1000 AC 07/31 PO 0941 Cefazolin Sodium 1,000 MG IQ8 07/31 0800 AC 08/01 IV 0026 Heparin Sodium 0 .STK-MED ONE 08/01 1525 DC (Porcine) .ROUTE Morphine Sulfate 4 MG Q4P PRN 07/31 0300 AC 07/31 IV 0345 Oxycodone HCl 5 MG Q6H PRN 07/31 0300 AC 08/01 PO 0412 Polyethylene Glycol 17 GM AT BEDTIME 07/31 2200 AC 07/31 PO 2120 Rivaroxaban 15 MG BID 07/31 1000 AC 07/31 PO 2120 Senna/Docusate Sodium 1 TAB AT BEDTIME 07/31 2200 AC 07/31 PO 2120 Last 24 Hrs of Lab/Bernardo Results Last 24 Hrs of Labs/Mics: Laboratory Tests 08/01/16 0750: Sodium Pending, Potassium Pending, Chloride Pending, Carbon Dioxide Pending, Anion Gap Pending, BUN Pending, Creatinine Pending, BUN/Creatinine Ratio Pending , CBC w Diff Pending, WBC Pending, RBC Pending, Hgb Pending, Hct Pending, MCV Pending, MCH Pending, RDW Pending, Plt Count Pending, MPV Pending, PUBS MCHC Pending Assessment/Plan Assessment: This is 50-year-old woman with past medical history of CVA secondary to cavernous hemangioma 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 EKG revealed, sinus rhythm at rate of 75, septal v1-4 T-wave inversion new from previous EKG Left lower extremity Doppler done on 07/28/2016 revealed nonocclusive acute thrombus within the left common femoral vein, greater saphenous vein takeoff and femoral vein Unable to do CTA chests as IV infiltrated Partial CT chest noted. 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 * Blood cultures are negative, but swelling almost remains the same. continue with cefazolin day2 .. * Lower extremity ultrasound revealed skin and subcutaneous edema. * Patient has been seen by Dr. Arenas yesterday recommended to keep the leg elevated with Xeroform dressings. * Continue monitor vitals every 4 hours * Pain control with IV morphine and oxycodone. 2. Left lower extremity DVT(recent history of long distance travel and cervical cancer in the past) * Transient episode of acute shortness of breath on admission however CTA ruled out any underlying PE. * Continue with Xarelto 15 mg twice a day. * Vascular surgery consult with Dr. Avila has been obtained for further evaluation of DVT and workup of peripheral vascular disease ,will follow the recommendations * Follow-up outpatient oncology. 3. History of hypertension * Continue home dose of atenolol. 4. Mild to moderate pain pathway with IV morphine and oxycodone. 5. DVT prophylaxis xeralto . 7. Patient is full code Problem List: 1. Left leg cellulitis Pain Ratin Pain Location: Left lower extremity pain Pain Goal: Remain pain free Pain Plan: PRN morphine and oxycodone Tomorrow's Labs & Rationales: CBC and BEP tomorrow Leukocytosis elevated creatinine AGNES GARCIA,STEPHANIA 08/01/16 1311: Attending MD Review Statement Attending Statement Attending MD Statement: examined this patient, discuss w/resident/PA/MATURITY CHECKER, agreed w/resident/PA/MATURITY CHECKER, reviewed EMR data (avail), discussed with nursing, discussed with case mgmt, reviewed images, amended to note Attending Assessment/Plan: Patient seen and examined, claims that she's feeling slightly better but not much improvement. Still has a significant amount of pain in the left lower extremity. The left posterior Mitty is still swollen and has weeping wounds. Vital Signs Date Time Temp Pulse Resp B/P Pulse O2 O2 Flow FiO2 Ox Delivery Rate 08/01 0721 98.2 80 20 125/80 96 08/01 0053 99.4 76 20 120/62 93 07/31 1731 97.8 66 20 132/82 94 Room Air 07/31 1337 97.9 66 18 128/61 97 Room Air 07/31 1326 97.9 66 18 128/61 97 Room Air on exam; aox3, nad. cv; s1,s2, rrr. resp; clear. abd; soft, nt, bs+ ext; lle with 2+ edema. There is also erythema as well as weeping wounds. Laboratory Tests 08/01 0750 Chemistry Sodium (137 - 145 mmol/L) 139 Potassium (3.5 - 5.1 mmol/L) 3.9 Chloride (98 - 107 mmol/L) 99 Carbon Dioxide (22 - 30 mmol/L) 28 Anion Gap (5 - 16) 11 BUN (7 - 17 mg/dL) 14 Creatinine (0.5 - 1.0 mg/dL) 1.0 Estimated GFR (>60 ml/min) 58 L BUN/Creatinine Ratio (7 - 25 %) 14.0 Hematology CBC w Diff NO MAN DIFF REQ WBC (4.8 - 10.8 /CUMM) 12.6 H RBC (4.20 - 5.40 /CUMM) 4.11 L Hgb (12.0 - 16.0 G/DL) 12.4 Hct (37 - 47 %) 37.5 MCV (81.0 - 99.0 FL) 91.2 MCH (27.0 - 31.0 PG) 30.2 RDW (11.5 - 14.5 %) 14.9 H Plt Count (130 - 400 /CUMM) 249 MPV (7.4 - 10.4 FL) 7.9 Gran % (42.2 - 75.2 %) 81.4 H Lymphocytes % (20.5 - 51.1 %) 9.8 L Monocytes % (1.7 - 9.3 %) 5.6 Eosinophils % (0 - 5 %) 3.0 Basophils % (0.0 - 2.0 %) 0.2 Absolute Granulocytes (1.4 - 6.5 /CUMM) 10.2 H Absolute Lymphocytes (1.2 - 3.4 /CUMM) 1.2 Absolute Monocytes (0.10 - 0.60 /CUMM) 0.7 H Absolute Eosinophils (0.0 - 0.7 /CUMM) 0.4 Absolute Basophils (0.0 - 0.2 /CUMM) 0 PUBS MCHC (33.0 - 37.0 G/DL) 33.1 A/P; 50 y/o F with pmh sig for CVA, Carvernous hemangioma (s/p craniotomy) with residual cranial neuropathies of 3,6,7 nerves, facial droop, DVT, IVF filter, HTN, Grovers disease, Cervical cancer, recent diagnosis of left lower extremity DVT started on Xarelto now admitted with cellulitis. Continue current antibiotics and will follow-up on the blood cultures. So far they're negative. Appreciate wound care input. Will follow recommendations for the dressing changes. Will call vascular surgery further evaluation although patient had a nonocclusive thrombus according to the ultrasound. Continue current pain management. Patient has been getting Xarelto for DVT. Continue all other current meds. Please order PT if not done.
--- NOTE | 2016-08-01 08:38 | PN- Wound Care ---
Subjective Subjective: She continues to have this discomfort of the left leg Objective Vital Signs and I&Os Vital Signs Result Date Time Pulse Ox 96 08/01 720 B/P 125/80 08/01 07 Temp 98.2 08/01 07 Pulse 80 08/01 0721 Resp 20 08/01 07 O2 Delivery Room Air 07/31 1731 Intake & Output 08/01 0000 07/31 1600 07/31 0800 Intake Total 240 15 Output Total 300 Balance 240 -285 Intake, IV 15 Intake, Oral 240 Number 0 Bowel Movements Output, Urine 300 Patient 344 lb Weight There continues to be significant swelling of the left leg, anterior venous stasis ulcers remain unchanged with clean red fill Impression/Plan Impression/Plan Impression/Plan: 30-year-old woman with chronic dermatitis recent DVT presents with increasing edema left leg swelling and suspected soft tissue skin infection. There are 2 left lower extremity ulcers which are likely venous stasis in origin. Recommend Wound cleansing and topical Xeroform and maximal leg elevation. If she fails to respond formal dermatologic evaluation for Gurwinder's disease would be appropriate. Consider repeat local showing venous Doppler ultrasound to assess status of her DVT. There is significant clot present consider vascular evaluation
[2016-08-01 09:03] LABS: ABSOLUTE BASOPHIL COUNT 0 /CUMM (0.0-0.2); ABSOLUTE EOSINOPHIL COUNT 0.4 /CUMM (0.0-0.7); ABSOLUTE GRANULOCYTE CT 10.2 /CUMM (1.4-6.5); ABSOLUTE LYMPH COUNT 1.2 /CUMM (1.2-3.4); ABSOLUTE MONOCYTE COUNT 0.7 /CUMM (0.10-0.60); BASOPHIL % 0.2 % (0.0-2.0); GRANULOCYTE % 81.4 % (42.2-75.2); HEMATOCRIT 37.5 % (37-47); MEAN CORPUSCULAR HGB 30.2 PG (27.0-31.0); MEAN CORPUSCULAR HGB CONC 33.1 G/DL (33.0-37.0); MEAN CORPUSCULAR VOLUME 91.2 FL (81.0-99.0); MEAN PLATELET VOLUME 7.9 FL (7.4-10.4); PLATELET COUNT 249 /CUMM (130-400); RBC DISTRIBUTION WIDTH 14.9 % (11.5-14.5); RED BLOOD CELL CT 4.11 /CUMM (4.20-5.40); WHITE BLOOD CELL COUNT 12.6 /CUMM (4.8-10.8)
[2016-08-01 16:19] VITALS: BP 112/76
[2016-08-02 00:18] VITALS: BP 102/60
[2016-08-02 07:14] VITALS: BP 118/72
--- NOTE | 2016-08-02 07:26 | PN- Housestaff ---
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 Left lower extremity DVT Subjective: Patient is seen and examined today, seems better slept well overnight. Her left leg covered with clean Xeroform dressings. Pain in the left leg improved. She remained afebrile overnight vitals are stable, patient will be evaluated by vascular surgeon Dr. Avila today. We'll continue with IV cefazolin for now. Review of Systems Constitutional: Denies: chills, diaphoresis, fever, malaise. EENTM: Denies: blurred vision, double vision, visual changes, eye pain, eye drainage. Cardiovascular: Denies: chest pain, edema, orthopena, palpitations. Respiratory: Denies: cough, hemoptysis, orthopnea. Gastrointestinal: Denies: abdominal pain, bloating, constipation, diarrhea. Genitourinary: Denies: discharge, dysuria, frequency. Musculoskeletal: Denies: back pain, gout, joint pain, joint swelling. Skin: Denies: cysts, change in skin color, change in hair/nails. Neurological/Psychological: Denies: anxiety, ataxia, cognitive dysfunction, confusion, depressed, dementia. Objective Last 24 Hrs of Vital Signs/I&O Vital Signs Date Time Temp Pulse Resp B/P Pulse O2 O2 Flow FiO2 Ox Delivery Rate 08/02 0714 98.2 68 20 118/72 94 Room Air 08/02 0018 98.4 63 20 102/60 93 Room Air 08/01 1619 98.1 65 20 112/76 95 Intake & Output 08/02 0800 08/02 0000 08/01 1600 Intake Total 550 558 1891 Output Total 1 Balance 260 240 999 Intake, Oral 156 362 8662 Output, Stool 1 Physical Exam General Appearance: Alert, Oriented X3 Skin: No Rashes, No Breakdown HEENT: Atraumatic, PERRLA Cardiovascular: Regular Rate, Normal S1, Normal S2 Lungs: Clear to Auscultation Abdomen: Normal Bowel Sounds, Soft, No Tenderness Extremities: left low ext sweeling with open wounds , covered with clean dry dressings Current Medications: Current Medications Sig/James Start time Last Medication Dose Route Stop Time Status Admin Acetaminophen 650 MG Q6P PRN 07/31 0300 AC PO Aspirin 81 MG DAILY 07/31 1000 AC 08/01 PO 0900 Atenolol 50 MG DAILY 07/31 1000 AC 08/01 PO 0900 Cefazolin Sodium 1,000 MG IQ8 07/31 0800 AC 08/02 IV 0110 Heparin Sodium 0 .STK-MED ONE 08/01 1525 DC (Porcine) .ROUTE Morphine Sulfate 4 MG Q4P PRN 07/31 0300 AC 08/02 IV 0110 Oxycodone HCl 5 MG Q6H PRN 07/31 0300 AC 08/02 PO 0629 Polyethylene Glycol 17 GM AT BEDTIME 07/31 2200 AC 08/01 PO 220 Rivaroxaban 15 MG BID 07/31 1000 AC 08/01 PO 220 Senna/Docusate Sodium 1 TAB AT BEDTIME 07/31 2199 AC 08/01 PO 220 Last 24 Hrs of Lab/Bernardo Results Last 24 Hrs of Labs/Mics: Laboratory Tests 08/02/16 0700: Sodium Pending, Potassium Pending, Chloride Pending, Carbon Dioxide Pending, Anion Gap Pending, BUN Pending, Creatinine Pending, BUN/Creatinine Ratio Pending , CBC w Diff Pending, WBC Pending, RBC Pending, Hgb Pending, Hct Pending, MCV Pending, MCH Pending, RDW Pending, Plt Count Pending, MPV Pending, PUBS MCHC Pending Assessment/Plan Assessment: This is 50-year-old woman with past medical history of 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 EKG revealed, sinus rhythm at rate of 75, septal v1-4 T-wave inversion new from previous EKG Left lower extremity Doppler done on 07/28/2016 revealed nonocclusive acute thrombus within the left common femoral vein, greater saphenous vein takeoff and femoral vein Unable to do CTA chests as IV infiltrated Partial CT chest noted. Lungs with asymmetric elevation of the right hemidiaphragm on the underwriting internship film Left ankle and foot x-ray revealed soft tissue swelling suggestive of cellulitis but no bony involvement or air in soft tissue noted Assessment and plan 1.Left lower extremity cellulitis superimposed on suspected stasis/[place]'s skin disease(rule out underlying abscess): * Continue to monitor patient on [facility] floor. * Blood cultures are negative, but swelling almost remains the same. continue with cefazolin day3 * Lower extremity ultrasound revealed skin and subcutaneous edema. * Continue leg elevation and Xeroform dressings as per triage specialist recommendations. * Continue monitor vitals every 4 hours * Pain control with IV morphine and oxycodone. 2. Left lower extremity DVT(recent history of long distance travel and cervical cancer in the past) * Transient episode of acute shortness of breath on admission however CTA ruled out any underlying PE. * Continue with Xarelto 15 mg twice a day. * Vascular surgery consult with Dr. Avila has been obtained for further evaluation of DVT and workup of peripheral vascular disease ,will follow the recommendations * Follow-up outpatient oncology. 3. History of hypertension * Continue home dose of atenolol. 4. Mild to moderate pain pathway with IV morphine and oxycodone. 5. DVT prophylaxis xeralto . 7. Patient is full code Problem List: 1. Left leg cellulitis 2. DVT (deep venous thrombosis) Pain Ratin Pain Location: Left lower extremity pain Pain Goal: Remain pain free Pain Plan: When necessary morphine and oxycodone Tomorrow's Labs & Rationales: No need of labs tomorrow AGNES GARCIA,[facility] 08/02/16 1205: Attending MD Review Statement Attending Statement Attending MD Statement: examined this patient, discuss w/resident/PA/GASOLINE PLANT OPERATOR, agreed w/resident/PA/GASOLINE PLANT OPERATOR, reviewed EMR data (avail), discussed with nursing, discussed with case mgmt, amended to note Attending Assessment/Plan: Patient seen and examined, still complains of the large amount of pain in the left lower extremity. It is slightly better in terms of swelling. Vascular surgery evaluation is pending. Vital Signs Date Time Temp Pulse Resp B/P Pulse O2 O2 Flow FiO2 Ox Delivery Rate 08/02 0714 98.2 68 20 118/72 94 Room Air 08/02 0018 98.4 63 20 102/60 93 Room Air 08/01 1619 98.1 65 20 112/76 95 on exam; aox3, nad. cv: s1,s2, rrr. resp; clear abd; soft, nt, bs+ ext; 1+ edema bilateral lower extremity. Positive dry skin changes on the right lower extremity. There is some improvement in erythema on the left lower extremity. Patient has Xeroform dressing as recommended by Dr. Bryant. Laboratory Tests 08/02 0700 Chemistry Sodium (137 - 145 mmol/L) 137 Potassium (3.5 - 5.1 mmol/L) 3.9 Chloride (98 - 107 mmol/L) 101 Carbon Dioxide (22 - 30 mmol/L) 26 Anion Gap (5 - 16) 10 BUN (7 - 17 mg/dL) 15 Creatinine (0.5 - 1.0 mg/dL) 0.9 Estimated GFR (>60 ml/min) > 60 BUN/Creatinine Ratio (7 - 25 %) 16.7 Hematology CBC w Diff NO MAN DIFF REQ WBC (4.8 - 10.8 /CUMM) 8.6 RBC (4.20 - 5.40 /CUMM) 3.75 L Hgb (12.0 - 16.0 G/DL) 11.4 L Hct (37 - 47 %) 34.5 L MCV (81.0 - 99.0 FL) 91.9 MCH (27.0 - 31.0 PG) 30.4 RDW (11.5 - 14.5 %) 14.8 H Plt Count (130 - 400 /CUMM) 228 MPV (7.4 - 10.4 FL) 7.9 Gran % (42.2 - 75.2 %) 76.0 H Lymphocytes % (20.5 - 51.1 %) 10.6 L Monocytes % (1.7 - 9.3 %) 6.5 Eosinophils % (0 - 5 %) 6.4 H Basophils % (0.0 - 2.0 %) 0.5 Absolute Granulocytes (1.4 - 6.5 /CUMM) 6.5 Absolute Lymphocytes (1.2 - 3.4 /CUMM) 0.9 L Absolute Monocytes (0.10 - 0.60 /CUMM) 0.6 Absolute Eosinophils (0.0 - 0.7 /CUMM) 0.6 Absolute Basophils (0.0 - 0.2 /CUMM) 0 PUBS MCHC (33.0 - 37.0 G/DL) 33.1 A/P; 50 y/o F with pmh sig for CVA, Carvernous hemangioma (s/p craniotomy) with residual cranial neuropathies of 3,6,7 nerves, facial droop, DVT, IVF filter, HTN, [place] disease, Cervical cancer, recent diagnosis of left lower extremity DVT started on Xarelto now admitted with cellulitis. Please continue the wound care as recommended by Dr. Bryant. Vascular surgery evaluation is pending. IV morphine and oxycodone is ordered for pain management. At this point we'll switch her to oral pain management with just Roxicodone and Tylenol. Please DC the IV morphine. Continue cefazolin for another 24 hours. If vascular surgery does not recommend any intervention and patient continued to improve the next he can be discharged home with home services tomorrow or Friday on oral antibiotics. Continue Xarelto.
--- NOTE | 2016-08-02 08:13 | PN- Wound Care ---
Subjective Subjective: Patient has less pain. She continues to have serous drainage despite elevation. She reports inability to walk. Duplex ultrasound July 28 showed acute clot Objective Vital Signs and I&Os Vital Signs Result Date Time Pulse Ox 94 08/02 713 B/P 118/72 08/02 713 O2 Delivery Room Air 08/02 713 Temp 98.2 08/02 713 Pulse 68 08/02 713 Resp 20 08/02 713 Intake & Output 08/02 0000 08/01 1600 08/01 0800 Intake Total 240 1000 360 Output Total 1 Balance 240 999 360 Intake, Oral 240 1000 360 Output, Stool 1 Exam of lower extremity wounds shows there to be periwound maceration there is still edema and serous drainage. White count has responded to antibiotics. Impression/Plan Impression/Plan Impression/Plan: 30-year-old woman with chronic dermatitis recent DVT presents with increasing edema left leg swelling and suspected soft tissue skin infection. Change wound dressings to Aquacel Ag in view of periwound maceration. Suggest vascular evaluation. Continue leg elevation. Given patient's reported inability to walk short-term rehabilitation may be appropriate
[2016-08-02 08:16] LABS: ABSOLUTE BASOPHIL COUNT 0 /CUMM (0.0-0.2); ABSOLUTE EOSINOPHIL COUNT 0.6 /CUMM (0.0-0.7); ABSOLUTE GRANULOCYTE CT 6.5 /CUMM (1.4-6.5); ABSOLUTE LYMPH COUNT 0.9 /CUMM (1.2-3.4); ABSOLUTE MONOCYTE COUNT 0.6 /CUMM (0.10-0.60); BASOPHIL % 0.5 % (0.0-2.0); EOSINOPHIL % 6.4 % (0-5); HEMATOCRIT 34.5 % (37-47); MEAN CORPUSCULAR HGB 30.4 PG (27.0-31.0); MEAN CORPUSCULAR HGB CONC 33.1 G/DL (33.0-37.0); MEAN CORPUSCULAR VOLUME 91.9 FL (81.0-99.0); MEAN PLATELET VOLUME 7.9 FL (7.4-10.4); PLATELET COUNT 228 /CUMM (130-400); RBC DISTRIBUTION WIDTH 14.8 % (11.5-14.5); RED BLOOD CELL CT 3.75 /CUMM (4.20-5.40); WHITE BLOOD CELL COUNT 8.6 /CUMM (4.8-10.8)
[2016-08-02] MEDS ORDERED: KEFLEX500 M1 PO (09:24)
[2016-08-02] MEDS ORDERED: OXYCODONE HCL5 M1 PO (09:28)
--- NOTE | 2016-08-02 09:28 | Patient Discharge Instructions ---
Discharge Instructions General Discharge Information You were seen/treated for: left low extremity Cellulitis Special Instructions: 1.Please f/u with your Pcp within 1-2 weeks after the discharge . 2.F/u with vascular surgeon and your oncologist as an out pt . 3.Return to the ER if symptoms get worse after the discharge . Diet Recommended Diet: Heart Healthy Activity Activity Self Limited: Yes Acute Coronary Syndrome Inclusion Criteria At DC or during hospital stay patient has or had the following: ACS DIAGNOSIS No Discharge Core Measures Meds if any: Prescribed or Continued at Discharge Meds if any: NOT Prescribed or Continued at Discharge Congestive Heart Failure Inclusion Criteria At DC or during hospital stay patient has or had the following: CHF DIAGNOSIS No Discharge Core Measures Meds if any: Prescribed or Continued at Discharge Meds if any: NOT Prescribed or Continued at Discharge Cerebrovascular accident Inclusion Criteria At DC or during hospital stay patient has or had the following: CVA/TIA Diagnosis No Discharge Core Measures Meds if any: Prescribed or Continued at Discharge Meds if any: NOT Prescribed or Continued at Discharge Venous thromboembolism Inclusion Criteria VTE Diagnosis No VTE Type NONE VTE Confirmed by (Test) NONE Discharge Core Measures - Per Current guidelines, there needs to be overlap - treatment for the first 5 days of Warfarin therapy. - If discharged on Warfarin prior to 5 days of - overlap therapy, the patient will need to be - assessed for post discharge needs including - *Post discharge parental anticoagulation - *Warfarin and/or parental anticoagulation education - *Follow up date to check INR post discharge At least 5 days overlap therapy as Inpatient No Meds if any: Prescribed or Continued at Discharge Note: Overlap Therapy is Warfarin and Anticoagulant Meds if any: NOT Prescribed or Continued at Discharge
--- NOTE | 2016-08-02 10:33 | Discharge Summary ---
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 EKG revealed, sinus rhythm at rate of 75, septal v1-4 T-wave inversion new from previous EKG Left lower extremity Doppler done on 07/28/2016 revealed nonocclusive acute thrombus within the left common femoral vein, greater saphenous vein takeoff and femoral vein Unable to do CTA chests as IV infiltrated Partial CT chest noted. Lungs with asymmetric elevation of the right hemidiaphragm on the browning processor film Left ankle and foot x-ray revealed soft tissue swelling suggestive of cellulitis but no bony involvement or air in soft tissue noted. Following problems were addressed while patient was on the [facility] 1.Left lower extremity cellulitis superimposed on suspected stasis/[place]'s skin disease: Patient was admitted to general floor. She was started on IV cefazolin. Open wounds on the left lower extremity were covered with Xeroform dressings as per Dr. Arenas recommendations. Blood cultures came negative patient was switched to Keflex 500 mg every 6 for a total of 10 days. 2.Left lower extremity DVT(recent history of long distance travel and cervical cancer in the past): Xarelto 15 mg twice a day was continued. Patient was evaluated by vascular surgeon Dr. Avila in the hospital recommended to continue with compression stockings and further evaluation of DVT and workup of peripheral vascular disease as an outpatient. 3. History of hypertension: Home dose of atenolol was continued in the hospital 4. DVT prophylaxis with subcutaneous Lovenox 5. Patient is full code Allergies: Coded Allergies: NO KNOWN ALLERGIES (04/15/12) Significant Procedures: EXAMINATION: US SUPERFICIAL IMAGING, EXTREMITY CLINICAL INFORMATION: Left lower extremity swelling, redness, pain and fever. Presumptive diagnosis of left lower extremity cellulitis. Evaluate for abscess. Patient found to have nonocclusive acute thrombus within the left common femoral vein, greater saphenous vein takeoff and femoral vein on 07/28/2016. COMPARISON: Plain films of the left ankle dated 07/31/2016. Venous Doppler ultrasound of the left lower extremity dated 07/28/2016. TECHNIQUE: Focused ultrasound of the area of patient's redness and tenderness in the left anterior garcia was performed in region of the open sore with a sterile transducer probe cover. FINDINGS: Diffuse edema is seen in the subcutaneous tissues of the anterior left mid garcia with mild thickening and edema of the overlying skin. No focal fluid collection or phlegmonous change is seen. With color Doppler imaging, no significant hyperemia is seen. Superficial veins are patent with normal color flow demonstrated. IMPRESSION: 1. Diffuse cutaneous and subcutaneous soft tissue edema in region of the patient's tenderness and redness in the left anterior garcia. 2. No focal abscess collection/phlegmon seen. DICTATED BY: ZACH NATION MD DATE/TIME DICTATED:07/31/16957 DEPUTY FIRE MARSHAL:LUIS DANIEL DATE/TIME TRANSCRIBED:07/31/16957 CONFIDENTIAL, DO NOT COPY WITHOUT APPROPRIATE AUTHORIZATION. 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 2.F/u with vascular surgeon and your oncologist as an out pt . 3.Return to the ER if symptoms get worse after the discharge . Medications at Discharge Discharge Medications: Continue taking these medications: Rivaroxaban (Xarelto) 15 MG TABLET 1 Tablet ORAL TWICE DAILY Comments: Last Taken: 08/05/16 Time: 1130 AM Atenolol (Atenolol) 50 MG TABLET 1 Tablet ORAL DAILY Comments: Last Taken: 08/05/16 Time: 1130 AM Aspirin (Aspirin*) 81 MG TAB.CHEW 1 Tablet ORAL DAILY Comments: Last Taken: 08/05/16 Time: 1130 AM Start taking the following new medications: Oxycodone HCl (Oxycodone HCl) 5 MG TABLET 1 Tablet ORAL Q6H as needed for PAIN SCALE 4-6 (MODERATE) Qty = 20 No Refills Comments: Last Taken: 08/05/16 Time: 745 AM Cephalexin (Cephalexin) 500 MG CAPSULE 500 Milligram ORAL EVERY SIX HOURS Qty = 18 No Refills Comments: Last Taken: 08/05/16 Time: 1130 AM Copies To: TASHA GARCIA,MAGGY Mckeon
--- NOTE | 2016-08-02 15:46 | Cons- Vascular Surgery ---
General Information and HPI Consulting Request Date of Consult: 08/02/16 Requested By: STEPHANIA ALARCON MD History of Present Illness: A 30-year-old lady with history of obesity, CVA, cavernous hemangioma, facial droop, DVT status post IVC filter, cervical cancer and [place]'s disease. Her prior DVT was about 12 years ago which was treated successfully according to her. He was recently in [place] and noted left leg swelling. She was found to have an acute DVT and was started on Xarelto. She has since moved back to [place] and presented to [facility] with left leg pain and swelling. She has been seen by the wound care team. Currently, she is being treated with leg elevation and dressing changes. I was asked to see the patient regarding vascular issues. Allergies/Medications Allergies: Coded Allergies: NO KNOWN ALLERGIES (04/15/12) Home Med List: Aspirin (Aspirin*) 81 MG TAB.CHEW 1 TAB PO DAILY HEART HEALTH (Reported) Atenolol 50 MG TABLET 1 TAB PO DAILY HTN (Reported) Cephalexin (Keflex) 500 MG CAPSULE 1 CAP PO Q6 CELLULITIS Oxycodone HCl 5 MG TABLET 1 TAB PO Q6H PRN PAIN SCALE 4-6 (MODERATE) Rivaroxaban (Xarelto) 15 MG TABLET 1 TAB PO BID DVT (Reported) Past History Medical History Blood Transfusion Hx: No Neurological: CVA, CAVERNOUS HEMANGIOMA CRANIAL NEUROPATHY EENT: tonsil infections Cardiovascular: hypertension, DVT Respiratory: NONE Gastrointestinal: NONE Hepatic: NONE Renal: NONE Musculoskeletal: [place] DISEASE Blood Disorders: DVT Cancer(s): cervical cancer Surgical History Pertinent Surgical History: craniotomy for hemangioma (cavernous) IVC filter placement Family History Relations & Conditions If Any: FATHER Coagulation disorder MOTHER FH: coronary arteriosclerosis grand mother FH: stroke Psychosocial History Where Do You Live? Home Who Do You Live With? self Services at Home: None Smoking Status: Former Smoker ETOH Use: denies use Illicit Drug Use: denies illicit drug use Functional Ability ADLs Independent: dressing, eating, toileting, bathing. Ambulation: independent IADLs Independent: shopping, housework, finances, food prep, telephone, transportation , medication admin. Employment History Employment: Unemployed Review of Systems Review of Systems: Patient denies headache, dizziness, cough, palpitation, diarrhea or constipation Exam & Diagnostic Data Vital Signs and I&O Vital Signs Date Time Temp Pulse Resp B/P Pulse O2 O2 Flow FiO2 Ox Delivery Rate 08/02 0714 98.2 68 20 118/72 94 Room Air 08/02 0018 98.4 63 20 102/60 93 Room Air 08/01 1619 98.1 65 20 112/76 95 Intake & Output 08/02 1600 08/02 0800 08/02 0000 08/01 1600 08/01 0800 08/01 0000 Intake Total 525 756 124 1536 360 240 Output Total 1 Balance 525 260 240 999 360 240 Intake, Oral 525 461 270 7938 360 240 Number 0 Bowel Movements Output, Stool 1 Patient 344 lb Weight Physical Exam: She is alert and oriented 3. There is right-sided facial droop. Lungs: Clear to auscultation bilaterally Cardiovascular: Regular rate and rhythm Abdomen: Obese, soft, nontender nondistended Extremities: Bilateral lower leg skin discoloration. There are wound on the left leg with clear yellow drainage. It is no purulence. There is bilateral palpable pedal pulses. Assessment/Plan Assessment/Plan 50-year-old lady with multiple medical issues and history of DVT with recurrent acute DVT was being treated with anticoagulation. She has had lower extremity skin discoloration and wounds for many years now. Her left leg cellulitis has improved with supportive care. Clinically, it appears that she might have venous insufficiency. I don't believe she has any significant peripheral arterial disease. Recommendation from the vascular standpoint is to continue with leg elevation. I think she might benefit from compression wrap. I would like to follow her at the [facility] on Tuesdays. Would continue anticoagulation for now. I will see her in my office as an outpatient for DVT follow-up. Consult Acknowledgment - Thank you for your consult request. Attending MD Review Statement Attending Statement Attending MD Statement: examined this patient, discuss w/resident/PA/TRIAGE TECHNICIAN
[2016-08-02 16:38] VITALS: BP 110/60
[2016-08-02 23:20] VITALS: BP 100/71
--- NOTE | 2016-08-03 07:59 | PN- Housestaff ---
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 Left lower extremity DVT Subjective: Patient seen and examined at bedside this AM. She reports she feels well but is frustrated her left leg wound is not healing as rapidly as she expected. Patient is amenable to be discharged to [facility] tomorrow. Review of Systems Constitutional: Denies: chills, fever, malaise. EENTM: Denies: blurred vision, visual changes, hearing changes, nasal congestion. Cardiovascular: Denies: chest pain, palpitations. Respiratory: Denies: cough, short of breath. Gastrointestinal: Denies: abdominal pain. Genitourinary: Denies: dysuria. Musculoskeletal: Reports: joint pain (Left ankle). Skin: Reports: erythema, lesions. Neurological/Psychological: Denies: confusion, headache. Hematologic/Endocrine: Denies: bruising, bleeding. Immunologic/Allergic: Denies: splenectomy. Objective Last 24 Hrs of Vital Signs/I&O Vital Signs Date Time Temp Pulse Resp B/P Pulse O2 O2 Flow FiO2 Ox Delivery Rate 08/03 08 98.0 71 18 128/70 98 Room Air 08/02 2320 98.5 76 20 100/71 93 Room Air 08/02 1638 97.9 64 23 110/60 93 Room Air Intake & Output 08/03 1600 08/03 0800 08/03 0000 Intake Total 240 780 Output Total Balance 240 780 Intake, Oral 240 780 Physical Exam General Appearance: Alert, Oriented X3, Cooperative, No Acute Distress Other Physical Findings: Skin: LLE covered in kerlex with noted dryness above wrapping. RLE chronic erythema with dryness appreciated. HEENT: Atraumatic, PERRLA Cardiovascular: Regular Rate, Normal S1, Normal S2 Lungs: Clear to Auscultation, normal air movement. Abdomen: Normal Bowel Sounds, Soft, No Tenderness Extremities: left low ext swelling with open wounds , covered with clean dry dressings Current Medications: Current Medications Sig/James Start time Last Medication Dose Route Stop Time Status Admin Acetaminophen 650 MG Q6P PRN 07/31 0300 AC PO Amoxicillin/ 875 MG Q12 08/03 2200 AC Clavulanate Potassium PO Aspirin 81 MG DAILY 07/31 1000 AC 08/03 PO 0805 Atenolol 50 MG DAILY 07/31 1000 AC 08/03 PO 0812 Cefazolin Sodium 1,000 MG IQ8 07/31 0800 DC 08/03 IV 0805 Morphine Sulfate 4 MG Q4P PRN 07/31 0300 DC 08/02 IV 1009 Oxycodone HCl 5 MG Q6H PRN 07/31 0300 AC 08/03 PO 0826 Patient Medication 1 ED .STK-MED ONE 08/02 1338 DC Teaching ED 08/02 1339 Polyethylene Glycol 17 GM AT BEDTIME 07/31 2200 AC 08/02 PO 2120 Rivaroxaban 15 MG BID 07/31 1000 AC 08/03 PO 0805 Senna/Docusate Sodium 1 TAB AT BEDTIME 07/31 2200 AC 08/02 PO 2120 Orders Radiology Findings: EXAMINATION: 2 views of the left foot CLINICAL INFORMATION: Left ankle and foot cellulitis. COMPARISON: Left foot radiographs 12/17/2010. FINDINGS: Diffuse soft tissue swelling involving the left foot, greatest dorsally. No acute fractures. There is medial angulation across the second metatarsophalangeal joint. The bony articulations are maintained. Os trigonum. No bony erosions or periosteal reaction. No radiopaque foreign bodies. IMPRESSION: Diffuse soft tissue swelling involving the left foot, greatest dorsally in keeping with the clinical history of cellulitis. No radiographic evidence of osteomyelitis.There is medial angulation across the second metatarsophalangeal joint that may be physiologic or that may reflect subluxation which can be correlated for tenderness overlying this area. Assessment/Plan Assessment: Ms. 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 EKG revealed, sinus rhythm at rate of 75, septal v1-4 T-wave inversion new from previous EKG Left lower extremity Doppler done on 07/28/2016 revealed nonocclusive acute thrombus within the left common femoral vein, greater saphenous vein takeoff and femoral vein Unable to do CTA chests as IV infiltrated Partial CT chest noted. 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 * Blood cultures are negative, but swelling almost remains the same. Continue with antibiotics (day4), however as recommended by Dr. Madsen we have switched to PO keflex. * Lower extremity ultrasound revealed skin and subcutaneous edema. * Continue leg elevation and Xeroform dressings as per veterinary milk specialist recommendations. * Continue monitor vitals every 4 hours * Pain control with IV morphine and oxycodone. * Please give compression stockings for discharge as per recommendations from vascular * DC tomorrow on PO augmentin 2. Left lower extremity DVT(recent history of long distance travel and cervical cancer in the past) * Transient episode of acute shortness of breath on admission however CTA ruled out any underlying PE. * Continue with Xarelto 15 mg twice a day. * Vascular surgery consult with Dr. Avila has been obtained for further evaluation of DVT and workup of peripheral vascular disease ,will follow the recommendations * Continue leg elevation, compression stockings upon discharge, f/u with Dr. Jj in his office on FRIDAY * Follow-up outpatient oncology. 3. History of hypertension * Continue home dose of atenolol. 4. Mild to moderate pain pathway with IV morphine and oxycodone. 5. DVT prophylaxis xeralto . 7. Patient is full code Problem List: 1. DVT (deep venous thrombosis) 2. Left leg cellulitis Pain Ratin Pain Location: Left ankle Pain Goal: Pain 4 or less Pain Plan: When necessary morphine and oxycodone Tomorrow's Labs & Rationales: None.
[2016-08-03 08:00] VITALS: BP 128/70
[2016-08-03 15:51] VITALS: BP 104/60
[2016-08-03 23:40] VITALS: BP 128/74
[2016-08-04 08:00] VITALS: BP 130/88
--- NOTE | 2016-08-04 08:06 | PN- Housestaff ---
See Addendum Subjective Follow-up For: 1.Left lower extremity cellulitis superimposed on suspected stasis/[place]'s skin disease 2. Left lower extremity DVT Subjective: Patient seen and examined at bedside this AM. She continues to endorse frustration at her slow recovery of the left lower extremity wound but is happy she is being discharged today with close follow up with vascular surgery (Dr. Jj) on Friday. Review of Systems Constitutional: Denies: chills, fever, malaise. EENTM: Denies: blurred vision, visual changes, hearing changes. Cardiovascular: Denies: chest pain, palpitations. Respiratory: Denies: cough, short of breath. Gastrointestinal: Denies: abdominal pain, bloating, constipation, diarrhea. Genitourinary: Denies: dysuria. Musculoskeletal: Reports: joint pain (Left ankle). Denies: back pain. Skin: Reports: dryness, erythema, lesions, rash. Neurological/Psychological: Denies: confusion, headache. Hematologic/Endocrine: Denies: bruising, bleeding. Immunologic/Allergic: Denies: splenectomy. Objective Last 24 Hrs of Vital Signs/I&O Vital Signs Date Time Temp Pulse Resp B/P Pulse O2 O2 Flow FiO2 Ox Delivery Rate 08/04 0800 97.6 73 18 130/88 96 Room Air 08/03 2340 97.8 69 20 128/74 94 Room Air 08/03 1551 97.9 61 20 104/60 97 Intake & Output 08/04 1600 08/04 0800 08/04 0000 Intake Total 480 240 Output Total 300 Balance 480 -60 Intake, Oral 480 240 Number 1 Bowel Movements Output, Urine 300 Physical Exam General Appearance: Alert, Oriented X3, Cooperative, No Acute Distress Other Physical Findings: Skin: LLE covered in kerlex with noted dryness above wrapping. RLE chronic erythema with dryness/excoriations appreciated. HEENT: Atraumatic, PERRLA Cardiovascular: Regular Rate, Normal S1, Normal S2, no murmur appreciated Lungs: Clear to Auscultation, normal air movement, normal RR. Abdomen: Normal Bowel Sounds, Soft, No Tenderness, no hepatomegaly Extremities: left low extremity swelling with open wounds , covered with clean dry dressing. Current Medications: Current Medications Sig/James Start time Last Medication Dose Route Stop Time Status Admin Acetaminophen 650 MG Q6P PRN 07/31 0300 AC PO Amoxicillin/ 875 MG Q12 08/03 2199 CAN Clavulanate Potassium PO Aspirin 81 MG DAILY 07/31 1000 AC 08/03 PO 08 Atenolol 50 MG DAILY 07/31 1000 AC 08/03 PO 08 Cefazolin Sodium 1,000 MG IQ8 07/31 0800 DC 08/03 IV 0805 Cephalexin 500 MG Q8 08/03 1400 AC 08/04 PO 0518 Oxycodone HCl 5 MG Q6H PRN 07/31 0300 AC 08/03 PO 2024 Polyethylene Glycol 17 GM AT BEDTIME 07/31 2200 AC 08/02 PO 2119 Rivaroxaban 15 MG BID 07/31 1000 AC 08/03 PO 2113 Senna/Docusate Sodium 1 TAB AT BEDTIME 07/31 2199 AC 08/02 PO 2119 Assessment/Plan Assessment: Ms. 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 EKG revealed, sinus rhythm at rate of 75, septal v1-4 T-wave inversion new from previous EKG Left lower extremity Doppler done on 07/28/2016 revealed nonocclusive acute thrombus within the left common femoral vein, greater saphenous vein takeoff and femoral vein Unable to do CTA chests as IV infiltrated Partial CT chest noted. Lungs with asymmetric elevation of the right hemidiaphragm on the power station operator film Left ankle and foot x-ray revealed soft tissue swelling suggestive of cellulitis but no bony involvement or air in soft tissue noted Assessment and plan 1.Left lower extremity cellulitis superimposed on suspected stasis/[place]'s skin disease(rule out underlying abscess): * Continue to monitor patient on [facility] floor, consideration for discharge today. * Blood cultures are negative, swelling improving slightly as she has been elevating her lehs. Continue with antibiotics (day #5 total), however as recommended by Dr. Madsen we have switched to PO keflex for discharge today. * Lower extremity ultrasound revealed skin and subcutaneous edema. * Continue leg elevation and Xeroform dressings as per target protection specialist recommendations. * Continue monitor vitals every 4 hours * Pain control with IV morphine and oxycodone. * We have given a prescription for compression stockings for discharge as per recommendations from vascular surgery, f/u in vascular surgery's office on 08/06/16 * DC today on PO keflex 2. Left lower extremity DVT(recent history of long distance travel and cervical cancer in the past) * Transient episode of acute shortness of breath on admission however CTA ruled out any underlying PE. * Continue with Xarelto 15 mg twice a day. * Vascular surgery consult with Dr. Avila has been obtained and appreciated for further evaluation of DVT and workup of peripheral vascular disease , he will follow her outpatient * Continue leg elevation, compression stockings upon discharge. * Follow-up outpatient oncology. 3. History of hypertension * Continue home dose of atenolol. 4. Mild to moderate pain pathway with oral oxycodone. 5. DVT prophylaxis xeralto . 7. Patient is full code Problem List: 1. Morbid obesity 2. DVT (deep venous thrombosis) 3. Left leg cellulitis Pain Ratin Pain Location: Left ankle Pain Goal: Pain 4 or less Pain Plan: Roxicodone 5 mg PO Q6H PRN for moderate pain. Tomorrow's Labs & Rationales: Discharge today.
[2016-08-04 16:00] VITALS: BP 165/73
[2016-08-04 23:35] VITALS: BP 143/87
[2016-08-05] MEDS ORDERED: KEFLEX500 M1 PO ×2 (07:52→09:28)
[2016-08-05 08:01] VITALS: BP 132/81
--- NOTE | 2016-08-05 08:05 | PN- Housestaff ---
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 Left lower extremity DVT Subjective: Patient is seen and examined today, she is better slept well overnight. Pain in the left lower extremity is getting better. She remained afebrile overnight, has been switched to Keflex(day 6). Patient has been evaluated by vascular surgeon, recommended to follow up as an outpatient. If patient remains stable will be discharged home with home health services. Review of Systems Constitutional: Denies: chills, diaphoresis, fever. EENTM: Denies: blurred vision, double vision, visual changes, eye pain, eye drainage. Cardiovascular: Denies: chest pain, edema, orthopena. Respiratory: Denies: cough. Gastrointestinal: Denies: abdominal pain, bloating, constipation. Objective Last 24 Hrs of Vital Signs/I&O Vital Signs Date Time Temp Pulse Resp B/P Pulse O2 O2 Flow FiO2 Ox Delivery Rate 08/05 0801 97.2 68 20 132/81 94 Room Air 08/04 2335 98.2 63 20 143/87 93 Room Air 08/04 1600 97.5 62 20 165/73 95 Intake & Output 08/05 1600 08/05 0800 08/05 0000 Intake Total 480 640 Output Total 350 Balance 480 290 Intake, Oral 480 640 Output, Urine 350 Physical Exam General Appearance: Alert, Oriented X3 Skin: No Rashes, No Breakdown HEENT: Atraumatic, PERRLA Cardiovascular: Regular Rate, Normal S1, Normal S2 Lungs: Clear to Auscultation, Normal Air Movement Abdomen: Normal Bowel Sounds, Soft Neurological: Normal Speech, Strength at 5/5 X4 Ext, Normal Tone Current Medications: Current Medications Sig/James Start time Last Medication Dose Route Stop Time Status Admin Acetaminophen 650 MG Q6P PRN 07/31 0300 AC PO Aspirin 81 MG DAILY 07/31 1000 AC 08/04 PO 0919 Atenolol 50 MG DAILY 07/31 1000 AC 08/04 PO 0919 Cephalexin 500 MG Q6 08/05 1200 UNVr PO Cephalexin 500 MG Q8 08/03 1400 DC 08/05 PO 0533 Oxycodone HCl 5 MG Q6H PRN 07/31 0300 AC 08/05 PO 0744 Polyethylene Glycol 17 GM AT BEDTIME 07/31 2199 AC 08/02 PO 2119 Rivaroxaban 15 MG BID 07/31 1000 AC 08/04 PO 2136 Senna/Docusate Sodium 1 TAB AT BEDTIME 07/31 2199 AC 08/02 PO 2119 Assessment/Plan Assessment: Ms. 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 EKG revealed, sinus rhythm at rate of 75, septal v1-4 T-wave inversion new from previous EKG Left lower extremity Doppler done on 07/28/2016 revealed nonocclusive acute thrombus within the left common femoral vein, greater saphenous vein takeoff and femoral vein Unable to do CTA chests as IV infiltrated Partial CT chest noted. Lungs with asymmetric elevation of the right hemidiaphragm on the clinical research analyst film Left ankle and foot x-ray revealed soft tissue swelling suggestive of cellulitis but no bony involvement or air in soft tissue noted Assessment and plan 1.Left lower extremity cellulitis superimposed on suspected stasis/[place]'s skin disease(rule out underlying abscess): * Continue to monitor patient on [facility] floor, consideration for discharge today. * Blood cultures are negative, swelling has been improved, Continue with antibiotics (day #6 total) for a total of 10 days. * Continue moderate to severe pain control with oxycodone * Continue leg elevation and Xeroform dressings as per multimedia authoring specialist recommendations. * Continue monitor vitals every 4 hours * We have given a prescription for compression stockings for discharge as per recommendations from vascular surgery, f/u in vascular surgery's office on 08/06/16 * DC today on PO keflex 2. Left lower extremity DVT(recent history of long distance travel and cervical cancer in the past) * Transient episode of acute shortness of breath on admission however CTA ruled out any underlying PE. * Continue with Xarelto 15 mg twice a day. * Vascular surgery consult with Dr. Avila has been obtained and appreciated for further evaluation of DVT and workup of peripheral vascular disease , he will follow her outpatient * Continue leg elevation, compression stockings upon discharge. * Follow-up outpatient oncology. 3. History of hypertension * Continue home dose of atenolol. 4. Mild to moderate pain pathway with oral oxycodone. 5. DVT prophylaxis xeralto . 7. Patient is full code Problem List: 1. Left leg cellulitis 2. DVT (deep venous thrombosis) Pain Ratin Pain Location: Left lower extremity pain Pain Goal: Remain pain free Pain Plan: When necessary oxycodone Tomorrow's Labs & Rationales: Will need labs as patient will be discharged. AGNES GARCIA,[facility] 08/05/16 1118: Attending MD Review Statement Attending Statement Attending MD Statement: examined this patient, discuss w/resident/PA/TYPING SECRETARY, agreed w/resident/PA/TYPING SECRETARY, reviewed EMR data (avail), discussed with nursing, discussed with case mgmt, amended to note Attending Assessment/Plan: Patient seen and examined, feels overall much better. Left lower extremity is less swollen and erythema has also improved. Patient remains afebrile. She is medically stable for discharge today. She'll be discharged home with home services as well as wound care services. Discharge on oral antibiotics to complete the course. Patient to follow-up with her primary care doctor as an outpatient.
[2016-08-05] MEDS ORDERED: CEPHALEXIN500 M3 PO (09:46)
--- NOTE | 2016-08-05 10:36 | NUR ---
1010 PATIENT REPORTED NEW BILATERAL BACK PAIN WITH RESPIRATIONS OD 10/10. PATIENT STATED"MY LUNG HURTS. BP 126/54, HR 107, 92% ON 2.5L NC, T 99.4, RR 32 [employer] SHOTHO[employer] DRI[employer] CLEMENT NOTIFIED. NATURAL G[employer] SHOTHOLE DRILLER AND DR PATEL IN ROOM WITH PATIENT. TROPONINS DRAWN, AND EKG DONE ORDERED. FOLLOW UP BILATERAL BP PER MD REQUEST: 130/56-LEFT, 118/60-RIGHT. TRAMADOL GIVEN FOR PAIN ORDERED.
== END 2016-08-05 13:55 | disposition home health service (06) | DRG 380 ==
LOC: ENRESERV → CANRESERV → ENRESERVDT → ENRESERVTM → ERH 21:00 → ENPENDDIS 07-31 01:44 → ERHI 07-31 01:44 → 2NB 07-31 01:44 → ERHI 07-31 08:25 → 2NB 07-31 16:00
PROVIDERS: Emergency Medicine; Internal Medicine; Student in an Organized Health Care Education/Training Program; ADMIT Internal Medicine
DX: L97.229 Non-pressure chronic ulcer of left calf with unspecified severity (principal); L03.116 Cellulitis of left lower limb; L97.829 Non-pressure chronic ulcer of other part of left lower leg with unspecified severity; E66.01 Morbid (severe) obesity due to excess calories; Z68.43 Body mass index [BMI] 50.0-59.9, adult; L11.1 Transient acantholytic dermatosis [Grover]; I82.4Z2 Acute embolism and thrombosis of unspecified deep veins of left distal lower extremity; I69.398 Other sequelae of cerebral infarction; I10 Essential (primary) hypertension; Z87.891 Personal history of nicotine dependence; Z85.41 Personal history of malignant neoplasm of cervix uteri
CPT/HCPCS: 2NBP; 36415; 73600-LT; 73620-LT; 76881; 82436; 87040; 93005; 93010; 96374; 96375; 97116-GO; 97162-GP; 97530-GO; J0690; J1644; J3490

== ENCOUNTER 2017-07-22 14:33 | Emergency (ER) | payer OTHER ==
[~2017-07-22] VITALS: Ht 170.2 cm; Wt 158.8 kg
[~2017-07-22 14:33] MED LIST: ASPIRIN81 M4 PO; ATENOLOL50 M1 PO; CEPHALEXIN500 M3 PO; KEFLEX500 M1 PO; OXYCODONE HCL5 M1 PO; XARELTO15 M1 PO
--- NOTE | 2017-07-22 15:44 | RADIOLOGY REPORT ---
EXAMINATION: XR RIBS, LEFT CLINICAL INFORMATION: Fall. Pain. COMPARISON: None TECHNIQUE: 2 views of the left ribs were obtained. FINDINGS: Lungs are clear. No consolidation, pneumothorax, or pleural effusion. The cardiomediastinal silhouette and pulmonary vasculature are normal. Osseous structures are unremarkable. No displaced rib fracture. No fractures are identified. IMPRESSION: Unremarkable examination.
--- NOTE | 2017-07-22 18:55 | ED MVC/FALL/TRAUMA COMPLAINT ---
History of Present Illness General Chief Complaint: Fall Stated Complaint: FALL LFT SIDED RIB PAIN/X 5DYS Source: patient Exam Limitations: no limitations Vital Signs & Intake/Output Vital Signs & Intake/Output Vital Signs Date Time Temp Pulse Resp B/P B/P Pulse O2 O2 Flow FiO2 Mean Ox Delivery Rate 07/22 2243 Room Air 07/22 2222 98.2 66 18 154/72 99 Room Air 07/22 1446 97.0 77 18 170/103 97 Room Air ED Intake and Output 07/23 0000 07/22 1200 Intake Total 0 Output Total Balance 0 Intake, Oral 0 Patient 350 lb Weight Weight Reported by Patient Measurement Method Allergies Coded Allergies: NO KNOWN ALLERGIES (04/15/12) Reconcile Medications Aspirin (Aspirin*) 81 MG TAB.CHEW 1 TAB PO DAILY HEART HEALTH (Reported) Atenolol 50 MG TABLET 1 TAB PO DAILY HTN (Reported) Cephalexin 500 MG CAPSULE 500 MG PO Q6 CELLULITIS Oxycodone HCl 5 MG TABLET 1 TAB PO Q6H PRN PAIN SCALE 4-6 (MODERATE) Oxycodone HCl/Acetaminophen (Percocet 5-325 MG Tablet) 5 MG-325 MG TABLET 1-2 TAB PO BID pain Rivaroxaban (Xarelto) 15 MG TABLET 1 TAB PO BID DVT (Reported) Triage Note: PT TO ER C/C LEFT SIDED FLANK/RIB PAIN S/P SLIP AND FALL ON 07/17. PATIENT HAD NEGATIVE CHEST X RAY ON 07/17. TAKES XARELTO FOR CHRONIC DVT. DENIES HEAD STRIKE AT TIME OF FALL. Triage Nurses Notes Reviewed? yes Onset: Abrupt Duration: day(s): (4-5) Timing: recent history Severity: moderate, severe Injuries/Fall Location: chest Method of Injury: fall No Modifying Factors: none HPI: 51-year-old female on Xarelto COMES into emergency room for further evaluation of left-sided rib pain/abdominal pain. Patient had slipped 4-5 days ago on her kitchen floor and came down on her left ribs. She denies hitting her head. Denies any neck pain. She went to see her primary care doctor who told her to come in for further evaluation of possible injury to the spleen. Denies any vomiting. Denies any left shoulder pain. Denies any head trauma. Denies any neck pain. (Higinio LAFLEUR,Nelson) Past History Travel History Traveled to [place] past 21 day No Medical History Any Pertinent Medical History? see below for history Neurological: CVA, CAVERNOUS HEMANGIOMA CRANIAL NEUROPATHY EENT: tonsil infections Cardiovascular: hypertension, DVT Respiratory: NONE Gastrointestinal: NONE Hepatic: NONE Renal: NONE Musculoskeletal: GROVERS DISEASE Blood Disorders: DVT Cancer(s): cervical cancer History of MRSA: Yes History of VRE: No History of CDIFF: No Surgical History Surgical History: craniotomy for hemangioma (cavernous) IVC filter placement Psychosocial History Who do you live with Patient/Self Services at Home None What is your primary language Albanian Tobacco Use: Never used Family History Family History, If Any: FATHER Coagulation disorder MOTHER FH: coronary arteriosclerosis grand mother FH: stroke Hx Contributory? No (Nelson Carlos) Review of Systems Review of Systems Constitutional: Reports: no symptoms. Eyes: Reports: no symptoms. Ears, Nose, Throat, Mouth: Reports: no symptoms. Respiratory: Reports: no symptoms. Cardiovascular: Reports: no symptoms. Gastrointestinal/Abdominal: Reports: see HPI. Genitourinary: Reports: no symptoms. Musculoskeletal: Reports: no symptoms. Skin: Reports: no symptoms. Neurological/Psychological: Reports: no symptoms. All Other Systems: Reviewed and Negative (Nelson Carlos) Physical Exam Physical Exam General Appearance: well developed/nourished, alert, awake Head: atraumatic, normal appearance Eyes: Bilateral: normal appearance, EOMI. Ears, Nose, Throat, Mouth: hearing grossly normal, moist mucous membrane Neck: normal inspection Respiratory: normal breath sounds, no respiratory distress Cardiovascular: regular rate/rhythm Gastrointestinal: soft, tenderness Back: normal inspection Extremities: normal range of motion Neurologic/Psych: awake, alert, oriented x 3, normal gait, normal mood/affect Skin: intact, normal color Core Measures ACS in differential dx? No CVA/TIA Diagnosis No Sepsis Present: No Sepsis Focused Exam Completed? No (Nelson Carlos) Progress Differential Diagnosis: abd injury, C/T/L spine injury, ext injury, ICH, pelvis injury, pnemothorax, spinal cord injury, splenic injury, rib fracture Plan of Care: Orders Procedure Date/time Status COMPREHENSIVE METABOLIC PANEL 07/22 185 Complete CBC WITHOUT DIFFERENTIAL 07/22 1854 Complete Laboratory Tests 07/22/17 1933: Anion Gap 17 H, Estimated GFR > 60, BUN/Creatinine Ratio 15.6, Glucose 96, Calcium 8.9, Total Bilirubin 0.6, AST 27, ALT 48, Alkaline Phosphatase 69, Total Protein 8.3 H, Albumin 4.6, Globulin 3.7, Albumin/Globulin Ratio 1.2, CBC w Diff NO MAN DIFF REQ, RBC 4.89, MCV 90.3, MCH 29.7, RDW 14.9 H, MPV 7.8, Gran % 78.1 H, Lymphocytes % 13.7 L, Monocytes % 4.8, Eosinophils % 2.8, Basophils % 0.6, Absolute Granulocytes 7.1 H, Absolute Lymphocytes 1.2, Absolute Monocytes 0.4, Absolute Eosinophils 0.3, Absolute Basophils 0.1, PUBS MCHC 32.9 L Diagnostic Imaging: Viewed by Me: Radiology Read, CT Scan. Discussed w/RAD: Radiology Read, CT Scan. Radiology Impression: PATIENT: ADÁN AQUINO PRESENT AGE: 51 PATIENT ACCOUNT NO: [id number] : 64 LOCATION: ER ORDERING PHYSICIAN: Griffin Fitzpatrick DO (TBS) SERVICE DATE: 07/22/17 EXAM TYPE: RAD - XRY-RIBS UNILATERAL-LEFT EXAMINATION: XR RIBS, LEFT CLINICAL INFORMATION: Fall. Pain. COMPARISON: None TECHNIQUE: 2 views of the left ribs were obtained. FINDINGS: Lungs are clear. No consolidation, pneumothorax, or pleural effusion. The cardiomediastinal silhouette and pulmonary vasculature are normal. Osseous structures are unremarkable. No displaced rib fracture. No fractures are identified. IMPRESSION: Unremarkable examination. DICTATED BY: Linwood Olson MD DATE/TIME DICTATED:07/22/171534 DOUGH BRAKER:LUIS DANIEL DATE/TIME TRANSCRIBED:07/22/171534 CONFIDENTIAL, DO NOT COPY WITHOUT APPROPRIATE AUTHORIZATION. <Electronically signed in Other Vendor System> SIGNED BY: Linwood Olson MD 07/22/17 7927, PATIENT: ADÁN AQUINO PRESENT AGE: 51 PATIENT ACCOUNT NO: [id number] : 64 LOCATION: ER ORDERING PHYSICIAN: Nelson LAFLEUR SERVICE DATE: 07/22/17 EXAM TYPE : CAT - CT ABD & PELVIS W IV CONTRAST EXAMINATION: CT ABDOMEN AND PELVIS WITH CONTRAST CLINICAL INFORMATION: Splenic trauma. Left upper quadrant pain. Fall. On Xarelto. COMPARISON: None TECHNIQUE: Multidetector volumetric imaging was performed of the abdomen and pelvis following IV administration of 80 mL of Optiray 320 intravenous contrast. Sagittal and coronal reformatted images were obtained on the technologist's workstation. DLP: 1638.37 mGy-cm FINDINGS: LUNG BASES: Asymmetric elevation of right diaphragm compared to left. Lung bases are clear. LIVER, GALLBLADDER, AND BILIARY TREE: Diffuse low attenuation of liver parenchyma without focal liver lesion. No intrahepatic bile duct dilatation. The gallbladder is unremarkable with no evidence of radiopaque gallstones, gallbladder wall thickening, or obvious pericholecystic inflammatory changes. PANCREAS: Unremarkable. SPLEEN: Unremarkable. ADRENAL GLANDS: Unremarkable. KIDNEYS AND URETERS: The kidneys are normal in size, shape, and attenuation. No hydronephrosis, hydroureter, or calculi seen. No perinephric stranding. BLADDER: Unremarkable. GASTROINTESTINAL TRACT: Diverticulosis of the sigmoid colon and descending colon. No bowel wall thickening or edema. No diverticulitis. Large volume of stool in the colon. The appendix is normal. The small bowel loops are normal. MESENTERY: No free air or free fluid. No hematoma. ABDOMINAL WALL: No significant hernia is appreciated. No hematoma of the abdominal wall. LYMPH NODES: Normal. VASCULAR: IVC filter present. Vascular wall calcifications of the aorta and iliac vessels. PELVIC VISCERA: Unremarkable. Surgical clips at the cul -de-sac. OSSEOUS STRUCTURES: No fracture of the lower ribs. No acute osseous abnormality. IMPRESSION: No acute abnormality. No fracture. Spleen is normal. DICTATED BY: Linwood Olson MD DATE/TIME DICTATED:07/22/172150 DOUGH BRAKER :LUIS DANIEL DATE/TIME TRANSCRIBED:07/22/172150 CONFIDENTIAL, DO NOT COPY WITHOUT APPROPRIATE AUTHORIZATION. <Electronically signed in Other Vendor System> SIGNED BY: Linwood Olson MD 07/22/17 3824 (Nelson Carlos) Departure Departure Disposition: HOME OR SELF CARE Condition: Stable Clinical Impression Primary Impression: Contusion of rib on left side Referrals: Lana Mckeon MD (PCP/Family) Additional Instructions: Take Percocet for pain. Follow-up with primary care doctor. Return if any other concerns worsening symptoms. Please go over all results of today's visit with your primary care doctor. Contact your primary care doctor to let them know you were here in the emergency room. There may be nonspecific findings which may not be related to your visit today here in the emergency room but may require further evaluation and chronic monitoring by your primary care doctor. If you had a laceration today the chance of foreign body always remains. You should follow-up with your primary care doctor for recheck in 3-5 days for a wound check. If you had an x-ray done there is a chance that a fracture could have been missed on initial read and you should follow-up with your primary care doctor for repeat x-rays if symptoms persist. If your blood pressure was elevated here in the emergency room please have rechecked by [facility] primary care doctor within the next 48. If you were prescribed a narcotic here in the emergency room or any type of controlled substances you're not allowed to drive while taking this medication or operate any type of heavy machinery. Narcotics can make you feel lightheaded dizziness nausea and can cause constipation. You may need to potato picker a stool softener. Thank you for choosing [facility] emergency room. Please return to the emergency room immediately if you have any other concerns worsening of symptoms. Departure Forms: Customer Survey General Discharge Information Prescriptions: Current Visit Scripts Oxycodone HCl/Acetaminophen (Percocet 5-325 MG Tablet) 1-2 TAB PO BID #20 TAB Comments 07/22/2017 10:58:44 PM No no evidence of acute trauma. Follow-up with primary care doctor. Return if any concerns worsening symptoms. (Nelson Carlos) PA/CREDIT PORTFOLIO ADVISOR Co-Sign Statement Statement: ED Attending supervision documentation- [] I saw and evaluated the patient. I have also reviewed all the pertinent lab results and diagnostic results. I agree with the findings and the plan of care as documented in the PA's/CREDIT PORTFOLIO ADVISOR's documentation. [X] I have reviewed the ED Record and agree with the PA's/CREDIT PORTFOLIO ADVISOR's documentation. [] Additions or exceptions (if any) to the PAs/CREDIT PORTFOLIO ADVISOR's note and plan are summarized below: [] (Zeb GARCIA,Loan)
[2017-07-22 19:57] LABS: ABSOLUTE BASOPHIL COUNT 0.1 /CUMM (0.0-0.2); ABSOLUTE EOSINOPHIL COUNT 0.3 /CUMM (0.0-0.7); ABSOLUTE GRANULOCYTE CT 7.1 /CUMM (1.4-6.5); ABSOLUTE LYMPH COUNT 1.2 /CUMM (1.2-3.4); ABSOLUTE MONOCYTE COUNT 0.4 /CUMM (0.10-0.60); BASOPHIL % 0.6 % (0.0-2.0); EOSINOPHIL % 2.8 % (0-5); GRANULOCYTE % 78.1 % (42.2-75.2); HEMATOCRIT 44.1 % (37-47); MEAN CORPUSCULAR HGB 29.7 PG (27.0-31.0); MEAN CORPUSCULAR HGB CONC 32.9 G/DL (33.0-37.0); MEAN CORPUSCULAR VOLUME 90.3 FL (81.0-99.0); MEAN PLATELET VOLUME 7.8 FL (7.4-10.4); PLATELET COUNT 223 /CUMM (130-400); RBC DISTRIBUTION WIDTH 14.9 % (11.5-14.5); RED BLOOD CELL CT 4.89 /CUMM (4.20-5.40); WHITE BLOOD CELL COUNT 9.1 /CUMM (4.8-10.8)
--- NOTE | 2017-07-22 22:10 | CT SCAN REPORT ---
EXAMINATION: CT ABDOMEN AND PELVIS WITH CONTRAST CLINICAL INFORMATION: Splenic trauma. Left upper quadrant pain. Fall. On Xarelto. COMPARISON: None TECHNIQUE: Multidetector volumetric imaging was performed of the abdomen and pelvis following IV administration of 80 mL of Optiray 320 intravenous contrast. Sagittal and coronal reformatted images were obtained on the technologist's workstation. DLP: 1638.37 mGy-cm FINDINGS: LUNG BASES: Asymmetric elevation of right diaphragm compared to left. Lung bases are clear. LIVER, GALLBLADDER, AND BILIARY TREE: Diffuse low attenuation of liver parenchyma without focal liver lesion. No intrahepatic bile duct dilatation. The gallbladder is unremarkable with no evidence of radiopaque gallstones, gallbladder wall thickening, or obvious pericholecystic inflammatory changes. PANCREAS: Unremarkable. SPLEEN: Unremarkable. ADRENAL GLANDS: Unremarkable. KIDNEYS AND URETERS: The kidneys are normal in size, shape, and attenuation. No hydronephrosis, hydroureter, or calculi seen. No perinephric stranding. BLADDER: Unremarkable. GASTROINTESTINAL TRACT: Diverticulosis of the sigmoid colon and descending colon. No bowel wall thickening or edema. No diverticulitis. Large volume of stool in the colon. The appendix is normal. The small bowel loops are normal. MESENTERY: No free air or free fluid. No hematoma. ABDOMINAL WALL: No significant hernia is appreciated. No hematoma of the abdominal wall. LYMPH NODES: Normal. VASCULAR: IVC filter present. Vascular wall calcifications of the aorta and iliac vessels. PELVIC VISCERA: Unremarkable. Surgical clips at the cul-de-sac. OSSEOUS STRUCTURES: No fracture of the lower ribs. No acute osseous abnormality. IMPRESSION: No acute abnormality. No fracture. Spleen is normal.
[2017-07-22] MEDS ORDERED: PERCOCET 5-3251 EACH PO (22:17)
[2017-07-22 22:22] VITALS: BP 154/72
== END 2017-07-22 22:43 ==
LOC: ERH 14:33
PROVIDERS: Physician Assistant Medical
DX: S20.212A Contusion of left front wall of thorax, initial encounter (principal); W01.0XXA Fall on same level from slipping, tripping and stumbling without subsequent striking against object, initial encounter; Y92.000 Kitchen of unspecified non-institutional (private) residence as the place of occurrence of the external cause; Y93.9 Activity, unspecified
CPT/HCPCS: 71100-LT; 74177